=== PATIENT | female | born 1955 | race Caucasian/White ===

== ENCOUNTER → 2016-04-23 | Outpatient (CLI) | payer MEDICARE ==
[~2016-04-23] MED LIST: ALTOCOR60 MG PO; BACTRIM DS 8001 TA1 PO; ELAVIL100 MG PO; KLOR-CON 88 MEQ PO; LASIX20 MG PO; MELATONIN3 M1 PO; METFORMIN1000 MG PO; METFORMIN500 MG PO; MS CONTIN60 MG PO; NEURONTIN800 MG PO; PERCOCET 325 MG1 TA7 PO; PREMPRO 0.3 MG-1 TA1 PO; PRILOSEC20 M1 PO; PYRIDIUM200 M1 PO; REGLAN5 MG PO; STOOL SOFTENER100 M1 PO; TENORMIN25 MG PO; THE MEDICINE S400 IU PO; VITAMIN D-32000 UNIT PO; ZESTRIL,PRINIVIL5 MG PO; ZYRTEC10 M2 PO
[2016-04-23 11:48] LABS: BASO % 0.2 % (0.0-1.0); EOS % 7.8 % (1.0-4.0); HEMATOCRIT 37.8 % (37.0-47.0); HEMOGLOBIN 11.7 g/dl (12.0-16.0); LYMPH # 2.5 10*3/uL (1.3-4.4); LYMPH % 19.9 % (27.0-41.0); MEAN CELL VOLUME 84.6 fl (81.0-99.0); MEAN CORPUSCULAR HGB 26.2 pg (27.0-31.0); MEAN PLATELET VOLUME 9.6 fl (9.6-12.3); MONO # 0.6 10*3/uL (0.1-1.0); MONO % 5.1 % (3.0-9.0); NEUT # 8.2 10*3/uL (2.3-7.9); NEUT % 66.7 % (47.0-73.0); PLATELET COUNT AUTOMATED 299 10*3/uL (130-400); RED BLOOD COUNT 4.47 10*6/uL (4.10-5.10); RED CELL DISTRI WIDTH 14.8 % (0-14.5); WHITE BLOOD COUNT 12.3 10*3/uL (4.8-10.8)
[2016-04-23 12:20] LABS: ALBUMIN 3.1 gm/dl (3.1-4.5); ALKALINE PHOSPHATASE 120 U/L (45-117); BILIRUBIN, TOTAL 0.2 mg/dl (0.2-1.0); BUN 5 mg/dl (7-24); CARBON DIOXIDE 29 mmol/L (21-32); CHLORIDE 102 mmol/L (98-107); CHOLESTEROL 162 mg/dL (<200); EST GLOM FILT AFRICAN AMERICAN > 60 ml/min; GLUCOSE 111 mg/dL (65-99); HDL CHOLESTEROL 76 mg/dl (40-60); LDL CHOLESTEROL 61 mg/dL (9-159); POTASSIUM 4.5 mmol/L (3.5-5.1); SGOT/AST 12 IU/L (3-35); SGPT/ALT 15 U/L (12-78); SODIUM 142 mmol/L (136-145); TRIGLYCERIDES 123 mg/dl (<150); VLDL CHOLESTEROL 25 mg/dL (6-40)
== END | disposition home or self-care (01) ==
LOC: LAB 11:17
PROVIDERS: Internal Medicine
DX: E11.9 Type 2 diabetes mellitus without complications (principal)

== ENCOUNTER → 2016-05-04 | Outpatient (CLI) | payer MEDICARE | END | disposition home or self-care (01) | LOC: US 11:00 | DX: I65.23 Occlusion and stenosis of bilateral carotid arteries (principal); R09.89 Other specified symptoms and signs involving the circulatory and respiratory systems ==

== ENCOUNTER 2016-07-26 20:49 | Emergency (ER) | payer MEDICARE ==
[2016-07-26] MEDS ORDERED: ZANTAC 150150 MG PO (21:07)
[2016-07-26] MEDS ORDERED: IBU800 MG PO (21:25)
[2016-07-26] MEDS ORDERED: Orphenadrine C100 MG PO (21:25)
[2016-07-26] MEDS ORDERED: PREDNISONE50 MG PO (21:25)
== END 2016-07-26 21:44 | disposition home or self-care (01) ==
LOC: ED 20:49
DX: M79.604 Pain in right leg (principal); M79.605 Pain in left leg; G89.29 Other chronic pain; M54.9 Dorsalgia, unspecified; Z79.899 Other long term (current) drug therapy; Z90.49 Acquired absence of other specified parts of digestive tract

== ENCOUNTER 2016-08-15 17:13 | Emergency (ER) | payer MEDICARE ==
[~2016-08-15] VITALS: Wt 99.8 kg
[~2016-08-15 17:13] MED LIST changes: +IBU800 MG PO; +Orphenadrine C100 MG PO; +PREDNISONE50 MG PO; +ZANTAC 150150 MG PO
[2016-08-15 17:56] LABS: BILIRUBIN 1+ (NEGATIVE); BLOOD NEGATIVE (NEGATIVE); CLARITY CLEAR (CLEAR); COLOR YELLOW (YELLOW); GLUCOSE NEGATIVE (NEGATIVE); KETONE TRACE (NEGATIVE); LEUKO ESTERASE TRACE (NEGATIVE); NITRITE NEGATIVE (NEGATIVE); PROTEIN TRACE (NEGATIVE); SPECIFIC GRAVITY 1.025 (1.005-1.030)
[2016-08-15 18:02] LABS: BACTERIA TRACE; WBC 16-20 wbc/hpf (0-5)
[2016-08-15 18:03] LABS: URINE REFLEX COMMENT YES (NO)
[2016-08-15] MEDS ORDERED: MACROBID100 M1 PO (18:07)
== END 2016-08-15 18:14 | disposition home or self-care (01) ==
LOC: ED 17:13
PROVIDERS: Registered Nurse
DX: N30.00 Acute cystitis without hematuria (principal); M54.2 Cervicalgia; M54.6 Pain in thoracic spine; Z79.899 Other long term (current) drug therapy

== ENCOUNTER 2016-08-21 14:19 | Inpatient (IN) | payer MEDICARE ==
[~2016-08-21] VITALS: Ht 162.5 cm; Wt 100.4 kg
--- NOTE | ~2016-08-21 | EKG ---
[place], [place] ELECTROCARDIOGRAM REPORT NAME: NATHANIEL GRANGER UNIT #: [id number] ROOM: 523 DOCTOR: MELLY UGARTE MD BIRTHDATE: [birth year] DOS: 08/22/2016 TIME: 1711 hours. Sinus tachycardia at 115 beats per minute. Complete left bundle branch block. An abnormal ECG. No previous tracing is available for comparison. MELLY GUARTE MD CM:EKGRPT:ELECTROCARDIOGRAM REPORT 1718 1750 MELLY UGARTE MD
--- NOTE | ~2016-08-21 | PR ---
[place], [place] PROGRESS NOTE NAME: [id number] UNIT #: [id number] ROOM: [facility] DOCTOR: MELLY UGARTE MD BIRTHDATE: [birth year] DOS: 08/27/2016 SUBJECTIVE: She was moved to the ICU. She was diagnosed with pulmonary embolism and is on anticoagulation. She has no more than usual shortness of breath. When she came to the hospital it was because of anterior chest heaviness rather than any localized pain on one or the other side of the chest and it probably was not from pulmonary embolism. She has no cough and has not had any expectoration of any blood. OBJECTIVE: GENERAL: She is comfortable. She has oxygen on and her complexion is fine. VITAL SIGNS: Pulse is in the 70s, regular. Blood pressure 130/64. NECK: JVP is normal. CARDIAC: Auscultation reveals no murmurs or rubs. There is no edema of the lower extremities. RESPIRATORY: She has crackles in both lungs, these are chronic. IMPRESSION: 1. This patient has been diagnosed with acute pulmonary embolism and is receiving appropriate therapy. 2. There is no evidence of right heart failure. No new recommendations. I saw this patient on behalf of Dr. Jaimes MELLY UGARTE MD CM:PNTRANS [id number] MELLY UGARTE MD 08/28/16 0649 interface
[~2016-08-21 14:19] MED LIST changes: +MACROBID100 M1 PO
[2016-08-21 14:22] VITALS: BP 131/73
[2016-08-21 14:54] LABS: BILIRUBIN NEGATIVE (NEGATIVE); BLOOD NEGATIVE (NEGATIVE); CLARITY CLEAR (CLEAR); COLOR YELLOW (YELLOW); GLUCOSE NEGATIVE (NEGATIVE); KETONE NEGATIVE (NEGATIVE); LEUKO ESTERASE NEGATIVE (NEGATIVE); NITRITE NEGATIVE (NEGATIVE); PROTEIN NEGATIVE (NEGATIVE); SPECIFIC GRAVITY <= 1.005 (1.005-1.030)
[2016-08-21 14:59] LABS: BASO % 0.1 % (0.0-1.0); EOS # 0.3 10*3/uL (0.0-0.4); EOS % 2.2 % (1.0-4.0); HEMATOCRIT 34.4 % (37.0-47.0); HEMOGLOBIN 11.3 g/dl (12.0-16.0); IG # 0.1 10*3/uL (0.0-0.1); LYMPH # 0.6 10*3/uL (1.3-4.4); LYMPH % 4.4 % (27.0-41.0); MEAN CELL VOLUME 82.5 fl (81.0-99.0); MEAN CORPUSCULAR HGB 27.1 pg (27.0-31.0); MEAN CORPUSCULAR HGB CONC 32.8 g/dl (33.0-37.0); MEAN PLATELET VOLUME 9.7 fl (9.6-12.3); MONO # 0.8 10*3/uL (0.1-1.0); MONO % 5.4 % (3.0-9.0); NEUT # 12.7 10*3/uL (2.3-7.9); NEUT % 87.2 % (47.0-73.0); PLATELET COUNT AUTOMATED 296 10*3/uL (130-400); RED BLOOD COUNT 4.17 10*6/uL (4.10-5.10); RED CELL DISTRI WIDTH 13.7 % (0-14.5); WHITE BLOOD COUNT 14.5 10*3/uL (4.8-10.8)
[2016-08-21 15:07] LABS: URINE REFLEX COMMENT NO (NO)
[2016-08-21 15:08] LABS: PROTHROMBIN TIME 11.1 SECONDS (9.0-12.4)
[2016-08-21 15:17] LABS: ALBUMIN 2.7 gm/dl (3.1-4.5); ALKALINE PHOSPHATASE 120 U/L (45-117); BILIRUBIN, TOTAL 0.4 mg/dl (0.2-1.0); BUN 8 mg/dl (7-24); CARBON DIOXIDE 26 mmol/L (21-32); CHLORIDE 99 mmol/L (98-107); CKMB 0.9 ng/ml (0.5-3.6); CPK 40 U/L (26-192); EST GLOM FILT AFRICAN AMERICAN > 60 ml/min; GLUCOSE 157 mg/dL (65-99); MAGNESIUM 1.3 mg/dL (1.5-2.1); POTASSIUM 3.4 mmol/L (3.5-5.1); SGOT/AST 27 IU/L (3-35); SGPT/ALT 21 U/L (12-78); SODIUM 135 mmol/L (136-145); TOTAL PROTEIN 6.8 gm/dL (6.4-8.2)
[2016-08-21 15:22] LABS: TROPONIN I 0.212 ng/ml (<0.045)
[2016-08-21 16:56] LABS: LA>2 REFLEX 2 HR DRAW NOW
[2016-08-21 18:17] VITALS: BP 147/57
[2016-08-21 18:45] VITALS: BP 124/60
[2016-08-21] MEDS ORDERED: PERCOCET 325 MG1 TA2 PO (18:59)
[2016-08-21 20:00] VITALS: BP 154/68
[2016-08-21 22:08] LABS: CKMB 1.5 ng/ml (0.5-3.6)
[2016-08-21 22:10] LABS: TROPONIN I 0.136 ng/ml (<0.045)
[2016-08-22] VITALS: BP 164/70
[2016-08-22 06:56] LABS: BASO % 0.1 % (0.0-1.0); EOS # 1.2 10*3/uL (0.0-0.4); HEMATOCRIT 33.7 % (37.0-47.0); HEMOGLOBIN 10.7 g/dl (12.0-16.0); IG # 0.1 10*3/uL (0.0-0.1); LYMPH # 1.4 10*3/uL (1.3-4.4); LYMPH % 12.6 % (27.0-41.0); MEAN CELL VOLUME 84.7 fl (81.0-99.0); MEAN CORPUSCULAR HGB 26.9 pg (27.0-31.0); MEAN CORPUSCULAR HGB CONC 31.8 g/dl (33.0-37.0); MEAN PLATELET VOLUME 9.7 fl (9.6-12.3); MONO # 0.6 10*3/uL (0.1-1.0); MONO % 5.9 % (3.0-9.0); NEUT # 7.6 10*3/uL (2.3-7.9); NEUT % 69.8 % (47.0-73.0); PLATELET COUNT AUTOMATED 289 10*3/uL (130-400); RED BLOOD COUNT 3.98 10*6/uL (4.10-5.10); RED CELL DISTRI WIDTH 13.5 % (0-14.5); WHITE BLOOD COUNT 10.9 10*3/uL (4.8-10.8)
[2016-08-22 07:30] LABS: ALBUMIN 2.5 gm/dl (3.1-4.5); ALKALINE PHOSPHATASE 107 U/L (45-117); BILIRUBIN, TOTAL 0.3 mg/dl (0.2-1.0); BUN 6 mg/dl (7-24); CARBON DIOXIDE 28 mmol/L (21-32); CHLORIDE 105 mmol/L (98-107); CHOLESTEROL 102 mg/dL (<200); EST GLOM FILT AFRICAN AMERICAN > 60 ml/min; GLUCOSE 112 mg/dL (65-99); HDL CHOLESTEROL 28 mg/dl (40-60); LDL CHOLESTEROL 50 mg/dL (9-159); MAGNESIUM 2.3 mg/dL (1.5-2.1); PHOSPHOROUS 1.9 mg/dL (2.5-4.9); POTASSIUM 3.5 mmol/L (3.5-5.1); SGOT/AST 24 IU/L (3-35); SGPT/ALT 18 U/L (12-78); SODIUM 142 mmol/L (136-145); TOTAL PROTEIN 6.2 gm/dL (6.4-8.2); TRIGLYCERIDES 122 mg/dl (<150); VLDL CHOLESTEROL 24 mg/dL (6-40)
[2016-08-22 07:33] LABS: PROTHROMBIN TIME 10.5 SECONDS (9.0-12.4)
[2016-08-22 07:41] LABS: HEMOGLOBIN A1c 6.8 % (4.8-5.6)
[2016-08-22 08:00] VITALS: BP 152/50
[2016-08-22 08:06] LABS: FOLIC ACID 5.87 ng/mL (>5.38); VITAMIN D, 25-HYDROXY 66.9 ng/mL (30-100)
[2016-08-22 12:00] VITALS: BP 134/68
[2016-08-22 16:00] VITALS: BP 122/52
[2016-08-22 17:14] VITALS: BP 162/58
[2016-08-22 20:00] VITALS: BP 151/71
[2016-08-23] VITALS (11 sets, daily range): BP systolic 88–177; BP diastolic 40–88
[2016-08-23 06:59] LABS: HEMATOCRIT 31.9 % (37.0-47.0); HEMOGLOBIN 10.2 g/dl (12.0-16.0); MEAN CELL VOLUME 84.8 fl (81.0-99.0); MEAN CORPUSCULAR HGB 27.1 pg (27.0-31.0); MEAN PLATELET VOLUME 9.5 fl (9.6-12.3); PLATELET COUNT AUTOMATED 299 10*3/uL (130-400); RED BLOOD COUNT 3.76 10*6/uL (4.10-5.10); RED CELL DISTRI WIDTH 13.8 % (0-14.5); WHITE BLOOD COUNT 14.1 10*3/uL (4.8-10.8)
[2016-08-23 07:28] LABS: BUN 6 mg/dl (7-24); CHLORIDE 105 mmol/L (98-107); GLUCOSE 104 mg/dL (65-99); POTASSIUM 3.1 mmol/L (3.5-5.1); SODIUM 141 mmol/L (136-145)
[2016-08-23 07:33] LABS: CARBON DIOXIDE 29 mmol/L (21-32); EST GLOM FILT AFRICAN AMERICAN > 60 ml/min
[2016-08-23 07:43] LABS: EOSINOPHIL # 1.6 10*3/uL (0-0.4); EOSINOPHILS 11 % (1-4); LYMPHOCYTE # 0.7 10*3/uL (1.3-4.4); MONOCYTE # 0.4 10*3/uL (0.1-1.0); NEUTROPHIL # 11.4 10*3/uL (2.3-7.9); NEUTROPHILS 81 % (47-73); PLATELET SUFFICIENCY NORMAL (NORMAL); TOTAL CELLS COUNTED 100 #CELLS
[2016-08-24] VITALS: BP 105/55
[2016-08-24 07:14] LABS: HEMATOCRIT 29.6 % (37.0-47.0); HEMOGLOBIN 9.3 g/dl (12.0-16.0); MEAN CELL VOLUME 84.3 fl (81.0-99.0); MEAN CORPUSCULAR HGB 26.5 pg (27.0-31.0); MEAN CORPUSCULAR HGB CONC 31.4 g/dl (33.0-37.0); MEAN PLATELET VOLUME 9.6 fl (9.6-12.3); PLATELET COUNT AUTOMATED 243 10*3/uL (130-400); RED BLOOD COUNT 3.51 10*6/uL (4.10-5.10); RED CELL DISTRI WIDTH 13.8 % (0-14.5); WHITE BLOOD COUNT 14.7 10*3/uL (4.8-10.8)
[2016-08-24 07:42] LABS: EOSINOPHIL # 1.9 10*3/uL (0-0.4); EOSINOPHILS 13 % (1-4); LYMPHOCYTE # 0.6 10*3/uL (1.3-4.4); MONOCYTE # 0.1 10*3/uL (0.1-1.0); NEUTROPHIL # 12.1 10*3/uL (2.3-7.9); NEUTROPHILS 82 % (47-73); TOTAL CELLS COUNTED 100 #CELLS
[2016-08-24 07:43] LABS: PLATELET SUFFICIENCY NORMAL (NORMAL)
[2016-08-24 07:44] LABS: ALKALINE PHOSPHATASE 176 U/L (45-117); BILIRUBIN, TOTAL 0.7 mg/dl (0.2-1.0); BUN 6 mg/dl (7-24); CARBON DIOXIDE 28 mmol/L (21-32); CHLORIDE 103 mmol/L (98-107); EST GLOM FILT AFRICAN AMERICAN > 60 ml/min; GLUCOSE 104 mg/dL (65-99); POTASSIUM 3.2 mmol/L (3.5-5.1); SGOT/AST 46 IU/L (3-35); SGPT/ALT 43 U/L (12-78); SODIUM 141 mmol/L (136-145); TOTAL PROTEIN 6.5 gm/dL (6.4-8.2)
[2016-08-24 08:00] VITALS: BP 135/55
[2016-08-24 12:00] VITALS: BP 116/41
[2016-08-24 16:00] VITALS: BP 119/49
[2016-08-24 20:00] VITALS: BP 127/51
[2016-08-25] VITALS: BP 117/59
[2016-08-25 04:26] VITALS: BP 116/58
[2016-08-25 06:23] LABS: BILIRUBIN NEGATIVE (NEGATIVE); BLOOD NEGATIVE (NEGATIVE); CLARITY CLEAR (CLEAR); COLOR YELLOW (YELLOW); GLUCOSE NEGATIVE (NEGATIVE); KETONE NEGATIVE (NEGATIVE); LEUKO ESTERASE NEGATIVE (NEGATIVE); NITRITE NEGATIVE (NEGATIVE); PROTEIN NEGATIVE (NEGATIVE); SPECIFIC GRAVITY <= 1.005 (1.005-1.030); UROBILINOGEN 0.2 E.U./dl (0.2-1.0)
[2016-08-25 06:27] LABS: HEMATOCRIT 29.3 % (37.0-47.0); HEMOGLOBIN 9.4 g/dl (12.0-16.0); MEAN CELL VOLUME 84.4 fl (81.0-99.0); MEAN CORPUSCULAR HGB 27.1 pg (27.0-31.0); MEAN CORPUSCULAR HGB CONC 32.1 g/dl (33.0-37.0); MEAN PLATELET VOLUME 9.7 fl (9.6-12.3); PLATELET COUNT AUTOMATED 253 10*3/uL (130-400); RED BLOOD COUNT 3.47 10*6/uL (4.10-5.10); RED CELL DISTRI WIDTH 13.8 % (0-14.5); WHITE BLOOD COUNT 15.6 10*3/uL (4.8-10.8)
[2016-08-25 06:29] LABS: URINE REFLEX COMMENT NO (NO); WBC 0-2 wbc/hpf (0-5)
[2016-08-25 06:55] LABS: EOSINOPHIL # 2.5 10*3/uL (0-0.4); EOSINOPHILS 16 % (1-4); LYMPHOCYTE # 0.8 10*3/uL (1.3-4.4); MONOCYTE # 0.3 10*3/uL (0.1-1.0); NEUTROPHILS 77 % (47-73); TOTAL CELLS COUNTED 100 #CELLS
[2016-08-25 06:56] LABS: PLATELET SUFFICIENCY NORMAL (NORMAL)
[2016-08-25 07:03] LABS: ALBUMIN 3.3 gm/dl (3.1-4.5); ALKALINE PHOSPHATASE 206 U/L (45-117); BUN 5 mg/dl (7-24); CARBON DIOXIDE 28 mmol/L (21-32); CHLORIDE 103 mmol/L (98-107); EST GLOM FILT AFRICAN AMERICAN > 60 ml/min; GLUCOSE 141 mg/dL (65-99); MAGNESIUM 1.3 mg/dL (1.5-2.1); POTASSIUM 3.2 mmol/L (3.5-5.1); SGOT/AST 91 IU/L (3-35); SGPT/ALT 59 U/L (12-78); SODIUM 140 mmol/L (136-145); TOTAL PROTEIN 6.4 gm/dL (6.4-8.2)
[2016-08-25 11:44] LABS: CKMB 1.3 ng/ml (0.5-3.6)
[2016-08-25 13:00] VITALS: BP 126/73
[2016-08-25 16:00] VITALS: BP 123/50
[2016-08-25 19:00] VITALS: BP 167/89
[2016-08-25 20:02] LABS: ABG CO2 CONTENT 29.1 mmol/L (23-27); ABG HCO3 27.9 mmol/l (22-26); ABG TEMPERATURE 99.7 F (98.0-99.0); ARTERIAL BLOOD GAS PH 7.443 (7.35-7.45); ARTERIAL BLOOD GAS PO2 93.4 mmHg (80-90)
[2016-08-25 20:09] LABS: CKMB 1.4 ng/ml (0.5-3.6)
[2016-08-25 20:11] LABS: TROPONIN I 0.206 ng/ml (<0.045)
[2016-08-25 23:36] VITALS: BP 108/55
[2016-08-26 03:27] VITALS: BP 136/72
[2016-08-26 03:40] LABS: BASO % 0.2 % (0.0-1.0); EOS # 0.2 10*3/uL (0.0-0.4); EOS % 1.8 % (1.0-4.0); HEMATOCRIT 28.8 % (37.0-47.0); HEMOGLOBIN 9.4 g/dl (12.0-16.0); IG # 0.1 10*3/uL (0.0-0.1); LYMPH # 0.7 10*3/uL (1.3-4.4); LYMPH % 5.2 % (27.0-41.0); MEAN CELL VOLUME 82.8 fl (81.0-99.0); MEAN CORPUSCULAR HGB CONC 32.6 g/dl (33.0-37.0); MEAN PLATELET VOLUME 9.4 fl (9.6-12.3); MONO # 0.3 10*3/uL (0.1-1.0); MONO % 2.7 % (3.0-9.0); NEUT # 11.1 10*3/uL (2.3-7.9); PLATELET COUNT AUTOMATED 258 10*3/uL (130-400); RED BLOOD COUNT 3.48 10*6/uL (4.10-5.10); RED CELL DISTRI WIDTH 13.9 % (0-14.5); WHITE BLOOD COUNT 12.5 10*3/uL (4.8-10.8)
[2016-08-26 03:55] LABS: ALBUMIN 2.8 gm/dl (3.1-4.5); ALKALINE PHOSPHATASE 187 U/L (45-117); BILIRUBIN, TOTAL 0.7 mg/dl (0.2-1.0); BUN 7 mg/dl (7-24); CARBON DIOXIDE 31 mmol/L (21-32); CHLORIDE 100 mmol/L (98-107); EST GLOM FILT AFRICAN AMERICAN > 60 ml/min; GLUCOSE 180 mg/dL (65-99); POTASSIUM 3.5 mmol/L (3.5-5.1); SGOT/AST 34 IU/L (3-35); SGPT/ALT 48 U/L (12-78); SODIUM 142 mmol/L (136-145); TOTAL PROTEIN 6.4 gm/dL (6.4-8.2)
[2016-08-26 08:00] VITALS: BP 142/59
[2016-08-26 10:01] LABS: INTERNATIONAL NORM RATIO 1.1 (2.0-3.5); PROTHROMBIN TIME 11.7 SECONDS (9.0-12.4)
[2016-08-26 16:04] VITALS: BP 123/51
[2016-08-26 20:00] VITALS: BP 147/71
[2016-08-27] VITALS: BP 124/58
[2016-08-27 04:00] VITALS: BP 130/61
[2016-08-27 07:30] LABS: CHLORIDE 101 mmol/L (98-107); POTASSIUM 3.9 mmol/L (3.5-5.1); SODIUM 138 mmol/L (136-145)
[2016-08-27 07:38] LABS: ALBUMIN 2.5 gm/dl (3.1-4.5); ALKALINE PHOSPHATASE 152 U/L (45-117); BILIRUBIN, TOTAL 0.4 mg/dl (0.2-1.0); BUN 15 mg/dl (7-24); CARBON DIOXIDE 30 mmol/L (21-32); EST GLOM FILT AFRICAN AMERICAN > 60 ml/min; GLUCOSE 282 mg/dL (65-99); MAGNESIUM 1.9 mg/dL (1.5-2.1); PHOSPHOROUS 3.1 mg/dL (2.5-4.9); SGOT/AST 14 IU/L (3-35); SGPT/ALT 31 U/L (12-78); TOTAL PROTEIN 6.2 gm/dL (6.4-8.2)
[2016-08-27 07:58] VITALS: BP 123/55
[2016-08-27 12:00] VITALS: BP 118/57; BP 130/54
[2016-08-27 16:00] VITALS: BP 123/61
[2016-08-27 20:00] VITALS: BP 132/62
[2016-08-27] MEDS ORDERED: LASIX20 MG PO (20:30)
[2016-08-27] MEDS ORDERED: KLOR-CON 88 ME1 PO (20:31)
[2016-08-28] VITALS: BP 140/63
[2016-08-28 04:00] VITALS: BP 139/58
[2016-08-28 05:22] LABS: BUN 17 mg/dl (7-24); CARBON DIOXIDE 32 mmol/L (21-32); CHLORIDE 99 mmol/L (98-107); EST GLOM FILT AFRICAN AMERICAN > 60 ml/min; GLUCOSE 333 mg/dL (65-99); POTASSIUM 4.3 mmol/L (3.5-5.1); SODIUM 138 mmol/L (136-145)
[2016-08-28 05:58] LABS: INTERNATIONAL NORM RATIO 1.1 (2.0-3.5); PROTHROMBIN TIME 11.4 SECONDS (9.0-12.4)
[2016-08-28 06:17] LABS: HEMATOCRIT 27.1 % (37.0-47.0); HEMOGLOBIN 8.7 g/dl (12.0-16.0); MEAN CELL VOLUME 83.4 fl (81.0-99.0); MEAN CORPUSCULAR HGB 26.8 pg (27.0-31.0); MEAN CORPUSCULAR HGB CONC 32.1 g/dl (33.0-37.0); MEAN PLATELET VOLUME 10.4 fl (9.6-12.3); PLATELET COUNT AUTOMATED 370 10*3/uL (130-400); RED BLOOD COUNT 3.25 10*6/uL (4.10-5.10); WHITE BLOOD COUNT 11.2 10*3/uL (4.8-10.8)
[2016-08-28 06:53] LABS: HYPOCHROMIA MODERATE; LYMPHOCYTE # 1.1 10*3/uL (1.3-4.4); NEUTROPHIL # 10.1 10*3/uL (2.3-7.9); NEUTROPHILS 90 % (47-73); PLATELET SUFFICIENCY NORMAL (NORMAL); TOTAL CELLS COUNTED 100 #CELLS
[2016-08-28 08:00] VITALS: BP 136/67
[2016-08-28 12:00] VITALS: BP 155/64
[2016-08-28] MEDS ORDERED: XARELTO15 M1 PO (13:33)
[2016-08-28] MEDS ORDERED: B12,B-12,B 12500 MC1 PO (13:33)
[2016-08-28] MEDS ORDERED: TENORMIN25 MG PO (13:33)
[2016-08-28] MEDS ORDERED: XARE20MG PO (13:33)
== END 2016-08-28 15:01 | disposition home or self-care (01) | DRG 177 ==
LOC: ED 14:19 → 4E 18:09 → 5E 18:09 → EDHOLD 18:09 → 4E 18:25 → ICCU 08-25 20:27 → 5E 08-28 10:12
PROVIDERS: Emergency Medicine; Family Medicine; Internal Medicine; Internal Medicine Hospice and Palliative Medicine
PROC: 4A02XM4 Measurement of Cardiac Total Activity, External Approach (ICD-10-PCS; principal; 2016-08-25)
PROC: 3E073KZ Introduction of Other Diagnostic Substance into Coronary Artery, Percutaneous Approach (ICD-10-PCS; principal; 2016-08-25)
PROC: 02HV33Z Insertion of Infusion Device into Superior Vena Cava, Percutaneous Approach (ICD-10-PCS; 2016-08-26)
DX: J15.6 Pneumonia due to other Gram-negative bacteria (principal); I26.99 Other pulmonary embolism without acute cor pulmonale; E43 Unspecified severe protein-calorie malnutrition; E87.1 Hypo-osmolality and hyponatremia; E87.2 Acidosis; F32.9 Major depressive disorder, single episode, unspecified; K21.9 Gastro-esophageal reflux disease without esophagitis; D64.9 Anemia, unspecified; E78.5 Hyperlipidemia, unspecified; E66.9 Obesity, unspecified; M51.26 Other intervertebral disc displacement, lumbar region; E83.42 Hypomagnesemia; E11.65 Type 2 diabetes mellitus with hyperglycemia; E87.6 Hypokalemia; R00.0 Tachycardia, unspecified; E11.40 Type 2 diabetes mellitus with diabetic neuropathy, unspecified; G89.29 Other chronic pain; Z90.49 Acquired absence of other specified parts of digestive tract; Z82.49 Family history of ischemic heart disease and other diseases of the circulatory system; Z80.8 Family history of malignant neoplasm of other organs or systems; Z83.3 Family history of diabetes mellitus; Z79.84 Long term (current) use of oral hypoglycemic drugs; Z79.1 Long term (current) use of non-steroidal anti-inflammatories (NSAID); Z79.899 Other long term (current) drug therapy; Z68.37 Body mass index [BMI] 37.0-37.9, adult

== ENCOUNTER → 2016-09-23 | Outpatient (CLI) | payer MEDICARE ==
[~2016-09-23] MED LIST changes: +B12,B-12,B 12500 MC1 PO; +KLOR-CON 88 ME1 PO; +PERCOCET 325 MG1 TA2 PO; +XARE20MG PO; +XARELTO15 M1 PO
== END | disposition home or self-care (01) ==
LOC: LAB 12:50
DX: N30.00 Acute cystitis without hematuria (principal); T73.3XXA Exhaustion due to excessive exertion, initial encounter

== ENCOUNTER 2016-10-27 11:14 | Inpatient (IN) | payer MEDICARE ==
[~2016-10-27] VITALS: Ht 162.5 cm; Wt 100.0 kg
[2016-10-27 11:28] VITALS: BP 126/72
[2016-10-27 12:40] LABS: HEMATOCRIT 32.9 % (37.0-47.0); HEMOGLOBIN 10.3 g/dl (12.0-16.0); MEAN CELL VOLUME 85.9 fl (81.0-99.0); MEAN CORPUSCULAR HGB 26.9 pg (27.0-31.0); MEAN CORPUSCULAR HGB CONC 31.3 g/dl (33.0-37.0); PLATELET COUNT AUTOMATED 303 10*3/uL (130-400); RED BLOOD COUNT 3.83 10*6/uL (4.10-5.10); RED CELL DISTRI WIDTH 15.7 % (0-14.5); WHITE BLOOD COUNT 15.4 10*3/uL (4.8-10.8)
[2016-10-27 12:49] LABS: ACT PARTIAL THROMBO TIME 41.1 SECONDS (20.8-31.5); INTERNATIONAL NORM RATIO 1.6 (2.0-3.5)
[2016-10-27 12:57] LABS: ALBUMIN 2.9 gm/dl (3.1-4.5); ALKALINE PHOSPHATASE 82 U/L (45-117); BUN 9 mg/dl (7-24); CHLORIDE 104 mmol/L (98-107); CPK 36 U/L (26-192); CREATININE 0.91 mg/dL (0.55-1.02); LIPASE 62 U/L (73-393); MAGNESIUM 1.6 mg/dL (1.5-2.1); PLATELET SUFFICIENCY NORMAL (NORMAL); POLYCHROMASIA SLIGHT; POTASSIUM 4.4 mmol/L (3.5-5.1); SGOT/AST 18 IU/L (3-35); SGPT/ALT 13 U/L (12-78); SODIUM 139 mmol/L (136-145); TOTAL CELLS COUNTED 100 #CELLS; TOTAL PROTEIN 6.4 gm/dL (6.4-8.2); TROPONIN I 0.039 ng/ml (<0.045)
[2016-10-27 12:59] LABS: CKMB < 0.5 ng/ml (0.5-3.6)
[2016-10-27 13:25] LABS: BILIRUBIN NEGATIVE (NEGATIVE); BLOOD NEGATIVE (NEGATIVE); CLARITY CLEAR (CLEAR); COLOR YELLOW (YELLOW); GLUCOSE NEGATIVE (NEGATIVE); KETONE NEGATIVE (NEGATIVE); LEUKO ESTERASE 2+ (NEGATIVE); NITRITE NEGATIVE (NEGATIVE); SPECIFIC GRAVITY <= 1.005 (1.005-1.030); UROBILINOGEN 0.2 E.U./dl (0.2-1.0)
[2016-10-27 13:31] VITALS: BP 106/51
[2016-10-27 13:31] LABS: WBC 41-50 wbc/hpf (0-5)
[2016-10-27 13:32] LABS: BACTERIA TRACE
[2016-10-27 14:15] VITALS: BP 104/56
[2016-10-27 17:48] VITALS: BP 116/86
[2016-10-27] MEDS ORDERED: ZANAFLEX2 M1 PO (17:53)
[2016-10-27] MEDS ORDERED: TENORMIN25 M1 PO (18:03)
--- NOTE | 2016-10-27 18:19 | NUR ---
Time: 1799 A 61 year old MALE admitted to 5E under services of FELIX MADERA DO, Pt. arrived via stretcher from ER. Chief complaint: DIZZINESS,UNSTEADY GAIT, UTI. CYNTHIA PEARL
--- NOTE | 2016-10-27 18:36 | NUR ---
DR. SARKAR NOTIFIED OF LACTIC ACID RESULTS.
[2016-10-27 20:00] VITALS: BP 100/47
[2016-10-28] VITALS (7 sets, daily range): BP systolic 92–131; BP diastolic 46–60
--- NOTE | 2016-10-28 01:43 | NUR ---
PATIENT MEDICATED WITH PERCOCET AT 2156 FOR COMPLAINTS OF A HEADACHE WITH EFFECTIVE RESULTS NOTED. RESTING IN RECLINER SLEEPING AT THIS TIME. NO SIGNS OR SYMPTOMS OF DISTRESS NOTED. WILL CONTINUE TO MONITOR. CALL LIGHT IN REACH.
--- NOTE | 2016-10-28 01:44 | NUR ---
PATIENT GIVEN FLU AND PNEUMONIA VACCINES EARLIER IN SHIFT. NO SIGNS OR SYMPTOMS OF DISTRESS NOTED. CALL LIGHT IN REACH.
[2016-10-28 06:10] LABS: BASO % 0.1 % (0.0-1.0); EOS # 0.8 10*3/uL (0.0-0.4); EOS % 9.2 % (1.0-4.0); HEMATOCRIT 29.5 % (37.0-47.0); HEMOGLOBIN 9.4 g/dl (12.0-16.0); LYMPH # 0.9 10*3/uL (1.3-4.4); LYMPH % 11.1 % (27.0-41.0); MEAN CELL VOLUME 86.5 fl (81.0-99.0); MEAN CORPUSCULAR HGB 27.6 pg (27.0-31.0); MEAN CORPUSCULAR HGB CONC 31.9 g/dl (33.0-37.0); MEAN PLATELET VOLUME 9.5 fl (9.6-12.3); MONO # 0.5 10*3/uL (0.1-1.0); MONO % 5.6 % (3.0-9.0); NEUT # 6.2 10*3/uL (2.3-7.9); NEUT % 73.6 % (47.0-73.0); PLATELET COUNT AUTOMATED 219 10*3/uL (130-400); RED BLOOD COUNT 3.41 10*6/uL (4.10-5.10); RED CELL DISTRI WIDTH 15.9 % (0-14.5); WHITE BLOOD COUNT 8.4 10*3/uL (4.8-10.8)
[2016-10-28 06:26] LABS: BUN 11 mg/dl (7-24); CHLORIDE 108 mmol/L (98-107); MAGNESIUM 1.7 mg/dL (1.5-2.1); SODIUM 141 mmol/L (136-145)
[2016-10-28 06:36] LABS: CHOLESTEROL 99 mg/dL (<200); CREATININE 0.57 mg/dL (0.55-1.02); HDL CHOLESTEROL 48 mg/dl (40-60); LDL CHOLESTEROL 36 mg/dL (9-159); PHOSPHOROUS 3.4 mg/dL (2.5-4.9); TRIGLYCERIDES 73 mg/dl (<150); VLDL CHOLESTEROL 15 mg/dL (6-40)
[2016-10-28 07:16] LABS: VITAMIN D, 25-HYDROXY 50.3 ng/mL (30-100)
--- NOTE | 2016-10-28 07:53 | NUR ---
PT RESTING IN CHAIR, NO DISTRESS NOTED; CALL LIGHT WITHIN REACH. WILL MONITOR
--- NOTE | 2016-10-28 08:30 | NUR ---
Room Inspector in to talk to patient. Patient states lives at HOME [address] with HER BROTHER. There are 11 steps in the home. Physician: DR [facility] Pharmacy: [facility] Home health services: NONE Patient's level of ADLs: INDEPENDENT Patient has working utilities: YES DME: NONE Follow-up physician's appointment after d/c: WILL BE MADE PRIOR TO DC Does patient want to access PORTAL?: Discharge plan HOME. STACY FORTE
--- NOTE | 2016-10-28 11:50 | NUR ---
PT REQUESTED AND GIVEN TYLENOL FOR C/O HEADACHE, WILL MONITOR. FAMILY AT BEDSIDE
--- NOTE | 2016-10-28 13:00 | NUR ---
PT STATES THAT TYLENOL HELPED. WILL MONITOR
[2016-10-29] VITALS: BP 115/73
[2016-10-29 06:30] LABS: BASO % 0.2 % (0.0-1.0); EOS # 0.8 10*3/uL (0.0-0.4); EOS % 12.9 % (1.0-4.0); HEMATOCRIT 30.9 % (37.0-47.0); HEMOGLOBIN 9.7 g/dl (12.0-16.0); LYMPH # 1.6 10*3/uL (1.3-4.4); MEAN CELL VOLUME 87.8 fl (81.0-99.0); MEAN CORPUSCULAR HGB 27.6 pg (27.0-31.0); MEAN CORPUSCULAR HGB CONC 31.4 g/dl (33.0-37.0); MEAN PLATELET VOLUME 10.2 fl (9.6-12.3); MONO # 0.5 10*3/uL (0.1-1.0); MONO % 8.7 % (3.0-9.0); NEUT # 3.2 10*3/uL (2.3-7.9); NEUT % 51.9 % (47.0-73.0); PLATELET COUNT AUTOMATED 265 10*3/uL (130-400); RED BLOOD COUNT 3.52 10*6/uL (4.10-5.10); RED CELL DISTRI WIDTH 15.8 % (0-14.5); WHITE BLOOD COUNT 6.1 10*3/uL (4.8-10.8)
[2016-10-29 08:00] VITALS: BP 114/50
--- NOTE | 2016-10-29 08:00 | NUR ---
PATIENT SITTING COMFORTABLY IN CHAIR, EASY RESPIRATIONS WITH SKIN WARM AND DRY. DENIES COMPLAINT OF DIZZINESS OR VISUAL CHANGES AT THIS TIME. CALL LIGHT SYSTEM REINFORCED FOR ASSISTANCE. STEADY GAIT.
[2016-10-29 08:22] VITALS: BP 108/56
--- NOTE | 2016-10-29 11:30 | NUR ---
PATIENT WAS GIVEN 5MG PO BASOCODYL PER PATIENT REQUEST DUE TO CONSTIPATION.
[2016-10-29 12:00] VITALS: BP 127/44
[2016-10-29 16:00] VITALS: BP 105/53
[2016-10-29] MEDS ORDERED: PHARMASSURE FO0.4 MG PO (16:20)
[2016-10-29] MEDS ORDERED: PHENAZOPYRIDIN100 M1 PO (16:29)
--- NOTE | 2016-10-29 17:48 | NUR ---
PATIENT WAS NOT GIVEN LISPRO PER SLIDING SCALE DUE TO A BLOOD GLUCOSE OF 116 MG/DL
--- NOTE | 2016-10-29 19:12 | NUR ---
Discharge instructions reviewed with patient/family. Patient receptive and verbalizes understanding. Written instructions given to patient/family. SAE GRANT
== END 2016-10-29 19:12 | disposition home or self-care (01) | DRG 871 ==
LOC: ED 11:14 → EDHOLD 14:07 → 5E 14:07
PROVIDERS: Emergency Medicine; Internal Medicine; ADMIT Internal Medicine
DX: A41.9 Sepsis, unspecified organism (principal); I26.99 Other pulmonary embolism without acute cor pulmonale; E44.0 Moderate protein-calorie malnutrition; E11.42 Type 2 diabetes mellitus with diabetic polyneuropathy; D68.9 Coagulation defect, unspecified; E11.69 Type 2 diabetes mellitus with other specified complication; F33.9 Major depressive disorder, recurrent, unspecified; N39.0 Urinary tract infection, site not specified; I10 Essential (primary) hypertension; D64.9 Anemia, unspecified; R65.20 Severe sepsis without septic shock; K21.9 Gastro-esophageal reflux disease without esophagitis; M51.26 Other intervertebral disc displacement, lumbar region; E55.9 Vitamin D deficiency, unspecified; E53.8 Deficiency of other specified B group vitamins; Z88.8 Allergy status to other drugs, medicaments and biological substances; Z79.899 Other long term (current) drug therapy; Z79.84 Long term (current) use of oral hypoglycemic drugs; Z90.49 Acquired absence of other specified parts of digestive tract; Z82.49 Family history of ischemic heart disease and other diseases of the circulatory system; Z83.3 Family history of diabetes mellitus; Z80.9 Family history of malignant neoplasm, unspecified; Z68.37 Body mass index [BMI] 37.0-37.9, adult

== ENCOUNTER → 2017-01-25 | Outpatient (CLI) | payer MEDICARE ==
[~2017-01-25] MED LIST changes: +PHARMASSURE FO0.4 MG PO; +PHENAZOPYRIDIN100 M1 PO; +TENORMIN25 M1 PO; +ZANAFLEX2 M1 PO
== END | disposition home or self-care (01) ==
LOC: RESCLI 01:20
DX: I11.0 Hypertensive heart disease with heart failure (principal); I50.32 Chronic diastolic (congestive) heart failure; E11.9 Type 2 diabetes mellitus without complications; E66.9 Obesity, unspecified; G89.29 Other chronic pain; D50.8 Other iron deficiency anemias; K21.0 Gastro-esophageal reflux disease with esophagitis; E78.00 Pure hypercholesterolemia, unspecified; I48.2 Chronic atrial fibrillation; F32.9 Major depressive disorder, single episode, unspecified; E55.9 Vitamin D deficiency, unspecified

== ENCOUNTER 2017-05-07 21:56 | Emergency (ER) | payer MEDICARE ==
[~2017-05-07] VITALS: Ht 162.5 cm; Wt 95.3 kg
== END 2017-05-07 23:20 | disposition home or self-care (01) ==
LOC: ED 21:56
DX: M79.604 Pain in right leg (principal); M79.605 Pain in left leg; Z79.899 Other long term (current) drug therapy

== ENCOUNTER → 2017-08-18 | Outpatient (CLI) | payer MEDICARE ==
[~2017-08-18] MED LIST changes: +CEPHALEXIN500 M1 PO
== END | disposition home or self-care (01) ==
LOC: RESCLI 04:09
DX: I48.2 Chronic atrial fibrillation (principal); K21.9 Gastro-esophageal reflux disease without esophagitis; I10 Essential (primary) hypertension; E78.5 Hyperlipidemia, unspecified; Z79.899 Other long term (current) drug therapy; Z88.8 Allergy status to other drugs, medicaments and biological substances; Z87.891 Personal history of nicotine dependence

== ENCOUNTER 2018-01-03 05:30 | Emergency (ER) | payer MEDICARE ==
[~2018-01-03] VITALS: Ht 162.5 cm; Wt 99.8 kg
[~2018-01-03 05:30] MED LIST changes: +MEDROL DOSEPAK4 MG PO
[2018-01-03] MEDS ORDERED: IBU800 MG PO (05:36)
[2018-01-03] MEDS ORDERED: CYCLOBENZAPRINE10 MG PO (05:36)
== END 2018-01-03 05:56 | disposition home or self-care (01) ==
LOC: ED 05:30
DX: G25.81 Restless legs syndrome (principal); I10 Essential (primary) hypertension; K21.9 Gastro-esophageal reflux disease without esophagitis; E11.40 Type 2 diabetes mellitus with diabetic neuropathy, unspecified; Z79.899 Other long term (current) drug therapy; Z86.711 Personal history of pulmonary embolism; Z90.49 Acquired absence of other specified parts of digestive tract

== ENCOUNTER → 2018-01-10 | Outpatient (CLI) | payer MEDICARE ==
[~2018-01-10] MED LIST changes: +CYCLOBENZAPRINE10 MG PO
== END | disposition home or self-care (01) ==
LOC: US 13:28
DX: M79.604 Pain in right leg (principal); M79.605 Pain in left leg; R29.898 Other symptoms and signs involving the musculoskeletal system; I10 Essential (primary) hypertension; E11.9 Type 2 diabetes mellitus without complications

== ENCOUNTER → 2018-02-10 | Outpatient (CLI) | payer MEDICARE | END | disposition home or self-care (01) | LOC: RESCLI 02:49 | DX: I48.2 Chronic atrial fibrillation (principal); I11.0 Hypertensive heart disease with heart failure; I50.32 Chronic diastolic (congestive) heart failure; E11.9 Type 2 diabetes mellitus without complications; D50.8 Other iron deficiency anemias; K21.9 Gastro-esophageal reflux disease without esophagitis; G89.29 Other chronic pain; E55.9 Vitamin D deficiency, unspecified; E78.5 Hyperlipidemia, unspecified; M19.90 Unspecified osteoarthritis, unspecified site; E66.9 Obesity, unspecified; Z90.49 Acquired absence of other specified parts of digestive tract; Z88.8 Allergy status to other drugs, medicaments and biological substances; Z79.899 Other long term (current) drug therapy; Z87.891 Personal history of nicotine dependence ==

== ENCOUNTER → 2018-02-15 | Outpatient (CLI) | payer MEDICARE ==
[~2018-02-15] MED LIST changes: +BUSPIRONE HCL7.5 MG PO; -ELAVIL100 MG PO; +ELAVIL75 MG PO; +LOVASTATIN40 MG PO; +OMEPRAZOLE40 MG PO; -PERCOCET 325 MG1 TA2 PO; +Percocet 325 MG1 TAB PO
[2018-02-15 11:57] LABS: BASO % 0.3 % (0.0-1.0); EOS # 0.7 10*3/uL (0.0-0.4); EOS % 7.7 % (1.0-4.0); HEMATOCRIT 38.3 % (37.0-47.0); HEMOGLOBIN 12.4 g/dl (12.0-16.0); LYMPH # 1.7 10*3/uL (1.3-4.4); LYMPH % 19.5 % (27.0-41.0); MEAN CELL VOLUME 91.4 fl (81.0-99.0); MEAN CORPUSCULAR HGB 29.6 pg (27.0-31.0); MEAN CORPUSCULAR HGB CONC 32.4 g/dl (33.0-37.0); MEAN PLATELET VOLUME 10.1 fl (9.6-12.3); MONO # 0.5 10*3/uL (0.1-1.0); MONO % 5.5 % (3.0-9.0); NEUT # 5.7 10*3/uL (2.3-7.9); NEUT % 66.7 % (47.0-73.0); PLATELET COUNT AUTOMATED 294 10*3/uL (130-400); RED BLOOD COUNT 4.19 10*6/uL (4.10-5.10); RED CELL DISTRI WIDTH 13.1 % (0-14.5); WHITE BLOOD COUNT 8.6 10*3/uL (4.8-10.8)
[2018-02-15 12:13] LABS: ALBUMIN 3.1 gm/dl (3.1-4.5); BUN 12 mg/dl (7-24); CHLORIDE 105 mmol/L (98-107); POTASSIUM 4.3 mmol/L (3.5-5.1); SODIUM 141 mmol/L (136-145)
[2018-02-15 12:22] LABS: ALKALINE PHOSPHATASE 101 U/L (45-117); CHOLESTEROL 189 mg/dL (<200); CREATININE 0.87 mg/dL (0.55-1.02); HDL CHOLESTEROL 62 mg/dl (40-60); IRON 57 ug/dL (50-170); LDL CHOLESTEROL 100 mg/dL (9-159); SGOT/AST 13 IU/L (3-35); SGPT/ALT 14 U/L (12-78); TOTAL IRON BINDING CAPACITY 309 ug/dl (250-450); TRIGLYCERIDES 137 mg/dl (<150); VLDL CHOLESTEROL 27 mg/dL (6-40)
== END | disposition home or self-care (01) ==
PROVIDERS: Student in an Organized Health Care Education/Training Program
DX: I10 Essential (primary) hypertension (principal); D50.8 Other iron deficiency anemias; I48.2 Chronic atrial fibrillation; E11.9 Type 2 diabetes mellitus without complications; E55.9 Vitamin D deficiency, unspecified; E78.00 Pure hypercholesterolemia, unspecified

== ENCOUNTER → 2018-03-18 | Outpatient (CLI) | payer MEDICARE | END | disposition home or self-care (01) | LOC: RESCLI 01:16 | DX: I11.0 Hypertensive heart disease with heart failure (principal); I50.32 Chronic diastolic (congestive) heart failure; I48.2 Chronic atrial fibrillation; E11.9 Type 2 diabetes mellitus without complications; D50.8 Other iron deficiency anemias; K21.9 Gastro-esophageal reflux disease without esophagitis; G89.29 Other chronic pain; E55.9 Vitamin D deficiency, unspecified; E78.5 Hyperlipidemia, unspecified; M19.90 Unspecified osteoarthritis, unspecified site; E66.9 Obesity, unspecified; E78.00 Pure hypercholesterolemia, unspecified; Z90.49 Acquired absence of other specified parts of digestive tract; Z79.899 Other long term (current) drug therapy; Z88.8 Allergy status to other drugs, medicaments and biological substances; Z87.891 Personal history of nicotine dependence ==

== ENCOUNTER → 2018-06-27 | Outpatient (CLI) | payer MEDICARE ==
[~2018-06-27] MED LIST changes: +BACLOFEN5 MG PO; +ERTAPENEM1 GM IV; +GABAPENTIN800 MG PO
[2018-06-27 10:21] LABS: BASO % 0.4 % (0.0-1.0); EOS % 11.2 % (1.0-4.0); HEMATOCRIT 37.4 % (37.0-47.0); HEMOGLOBIN 11.8 g/dl (12.0-16.0); LYMPH # 2.1 10*3/uL (1.3-4.4); MEAN CORPUSCULAR HGB 29.4 pg (27.0-31.0); MEAN CORPUSCULAR HGB CONC 31.6 g/dl (33.0-37.0); MEAN PLATELET VOLUME 9.9 fl (9.6-12.3); MONO # 0.6 10*3/uL (0.1-1.0); MONO % 6.2 % (3.0-9.0); NEUT # 5.4 10*3/uL (2.3-7.9); NEUT % 58.9 % (47.0-73.0); PLATELET COUNT AUTOMATED 283 10*3/uL (130-400); RED BLOOD COUNT 4.02 10*6/uL (4.10-5.10); RED CELL DISTRI WIDTH 13.2 % (0-14.5); WHITE BLOOD COUNT 9.2 10*3/uL (4.8-10.8)
[2018-06-27 10:46] LABS: ALBUMIN 3.2 gm/dl (3.1-4.5); BUN 9 mg/dl (7-24); CHLORIDE 106 mmol/L (98-107); CHOLESTEROL 165 mg/dL (<200); CREATININE 1.02 mg/dL (0.55-1.02); IRON 70 ug/dL (50-170); POTASSIUM 4.8 mmol/L (3.5-5.1); SGOT/AST 11 IU/L (3-35); SGPT/ALT 14 U/L (12-78); SODIUM 142 mmol/L (136-145); TOTAL IRON BINDING CAPACITY 317 ug/dl (250-450); TOTAL PROTEIN 7.2 gm/dL (6.4-8.2); TRIGLYCERIDES 167 mg/dl (<150); VLDL CHOLESTEROL 33 mg/dL (6-40)
[2018-06-27 10:53] LABS: ALKALINE PHOSPHATASE 105 U/L (45-117); HDL CHOLESTEROL 49 mg/dl (40-60); LDL CHOLESTEROL 83 mg/dL (9-159)
[2018-06-27 12:35] LABS: VITAMIN D, 25-HYDROXY 43.7 ng/mL (30-100)
== END | disposition home or self-care (01) ==
LOC: LAB 09:57
PROVIDERS: Student in an Organized Health Care Education/Training Program
DX: D50.9 Iron deficiency anemia, unspecified (principal); E55.9 Vitamin D deficiency, unspecified; Z79.899 Other long term (current) drug therapy

== ENCOUNTER → 2018-07-13 | Outpatient (CLI) | payer MEDICARE | END | disposition home or self-care (01) | LOC: RESCLI 01:08 | DX: I48.2 Chronic atrial fibrillation (principal); I10 Essential (primary) hypertension; E11.9 Type 2 diabetes mellitus without complications; E78.5 Hyperlipidemia, unspecified; K21.9 Gastro-esophageal reflux disease without esophagitis; G47.00 Insomnia, unspecified; K59.03 Drug induced constipation; G89.29 Other chronic pain; D50.8 Other iron deficiency anemias; E55.9 Vitamin D deficiency, unspecified; Z87.891 Personal history of nicotine dependence; Z88.8 Allergy status to other drugs, medicaments and biological substances; Z79.899 Other long term (current) drug therapy ==

== ENCOUNTER 2018-08-27 11:33 | Inpatient (IN) | payer MEDICARE ==
[~2018-08-27] VITALS: Ht 162.5 cm; Wt 107.5 kg
--- NOTE | ~2018-08-27 | EKG ---
[place], [place] ELECTROCARDIOGRAM REPORT NAME: NATHANIEL GRANGER UNIT #: [id number] ROOM: 506 DOCTOR: ALAN DRAFT REPORT BIRTHDATE: [birth year] [facility] Test Date: 2018-08-27 Test Time: 14:47:24 Pat Name: NATHANIEL GRANGER Department: Room: 506 Gender: F Real Estate Sales Manager: Jami Albert : 1955 Requested By: AV ZHONG Order Number: [id number] Reading MD: Jim Herrera Measurements Intervals [place] Rate: 64 P: 26 PA: 167 QRS: -37 QRSD: 139 T: 23 QT: 456 QTc: 471 Interpretive Statements Sinus rhythm Left bundle branch block Baseline wander in lead(s) II,III,aVF,V1 No previous ECG available for comparison Electronically Signed On 08-29-2018 11:44:59 PDT by Jim Herrera CM:EKGRPT:ELECTROCARDIOGRAM REPORT 1447 1144 AV PHILLIPS DRAFT REPORT AV ZHONG MD
--- NOTE | ~2018-08-27 | EKG ---
[place], [place] ELECTROCARDIOGRAM REPORT NAME: NATHANIEL GRANGER UNIT #: [id number] ROOM: 506 DOCTOR: ALAN DRAFT REPORT BIRTHDATE: [birth year] [facility] Test Date: 2018-08-27 Test Time: 11:33:40 Pat Name: NATHANIEL GRANGER Department: Room: 506 Gender: F Restaurant Kitchen Manager: : 1955 Requested By: AV ZHONG Order Number: [id number] Reading MD: Jim Herrera Measurements Intervals [place] Rate: 70 P: 32 LA: 155 QRS: -35 QRSD: 141 T: 47 QT: 448 QTc: 484 Interpretive Statements Sinus rhythm Left bundle branch block Electronically Signed On 08-29-2018 11:43:28 PDT by Jim Herrera CM:EKGRPT:ELECTROCARDIOGRAM REPORT 1133 1143 AV PHILLIPS DRAFT REPORT AV ZHONG MD
--- NOTE | ~2018-08-27 | EKG ---
[place], [place] ELECTROCARDIOGRAM REPORT NAME: NATHANIEL GRANGER UNIT #: [id number] ROOM: 506 DOCTOR: ALAN DRAFT REPORT BIRTHDATE: [birth year] [facility] Test Date: 2018-08-27 Test Time: 16:52:36 Pat Name: NATHAINEL GRANGER Department: Room: 506 Gender: F Medical Dermatologist: Jami Albert : 1955 Requested By: AV ZHONG Order Number: [id number] Reading MD: Jim Herrera Measurements Intervals [place] Rate: 59 P: 32 CO: 169 QRS: -37 QRSD: 139 T: 23 QT: 476 QTc: 472 Interpretive Statements Sinus rhythm Left bundle branch block No previous ECG available for comparison Electronically Signed On 08-29-2018 11:48:42 PDT by Jim Herrera CM:EKGRPT:ELECTROCARDIOGRAM REPORT 1652 1148 AV PHILLIPS DRAFT REPORT AV ZHONG MD
[~2018-08-27 11:33] MED LIST changes: -BACLOFEN5 MG PO; -BUSPIRONE HCL7.5 MG PO; -ERTAPENEM1 GM IV; -GABAPENTIN800 MG PO; -LOVASTATIN40 MG PO; -OMEPRAZOLE40 MG PO
[2018-08-27 11:35] VITALS: BP 126/48
[2018-08-27 11:53] LABS: BASO # 0.1 10*3/uL (0.0-0.1); BASO % 0.6 % (0.0-1.0); EOS # 0.7 10*3/uL (0.0-0.4); EOS % 7.8 % (1.0-4.0); HEMATOCRIT 37.9 % (37.0-47.0); LYMPH # 1.8 10*3/uL (1.3-4.4); LYMPH % 21.3 % (27.0-41.0); MEAN CELL VOLUME 90.9 fl (81.0-99.0); MEAN CORPUSCULAR HGB 28.8 pg (27.0-31.0); MEAN CORPUSCULAR HGB CONC 31.7 g/dl (33.0-37.0); MEAN PLATELET VOLUME 10.1 fl (9.6-12.3); MONO # 0.6 10*3/uL (0.1-1.0); MONO % 7.1 % (3.0-9.0); NEUT # 5.4 10*3/uL (2.3-7.9); NEUT % 62.9 % (47.0-73.0); PLATELET COUNT AUTOMATED 288 10*3/uL (130-400); RED BLOOD COUNT 4.17 10*6/uL (4.10-5.10); RED CELL DISTRI WIDTH 13.2 % (0-14.5); WHITE BLOOD COUNT 8.6 10*3/uL (4.8-10.8)
[2018-08-27 12:08] LABS: ACT PARTIAL THROMBO TIME 28.5 SECONDS (20.0-32.1); INTERNATIONAL NORM RATIO 0.9 (2.0-3.5)
[2018-08-27 12:09] LABS: ALBUMIN 3.3 gm/dl (3.1-4.5); ALKALINE PHOSPHATASE 101 U/L (45-117); BUN 13 mg/dl (7-24); CHLORIDE 106 mmol/L (98-107); CREATININE 1.02 mg/dL (0.55-1.02); POTASSIUM 5.3 mmol/L (3.5-5.1); SGOT/AST 14 IU/L (3-35); SGPT/ALT 14 U/L (12-78); SODIUM 142 mmol/L (136-145); TOTAL PROTEIN 7.3 gm/dL (6.4-8.2)
[2018-08-27 12:10] LABS: TROPONIN I < 0.015 ng/ml (<0.045)
[2018-08-27 12:35] VITALS: BP 121/41
--- NOTE | 2018-08-27 15:00 | NUR ---
PATIENT TAKEN TO FLOOR BY MARIANELA AT THIS TIME. PATIENT A&OX4. REPORT GIVEN TO JEMIMA NICK ON PHONE.
[2018-08-27 15:11] VITALS: BP 141/48
--- NOTE | 2018-08-27 15:11 | NUR ---
A 62, admitted to , under the services of DANNI Suazo DO with a diagnosis of CHEST PAIN. Chief complaint is MIDSTERNAL CHEST PAIN. Patient arrived via stretcher from ER. Monitor applied. Initial assessment completed. Vital signs taken and recorded. DANNI SUAZO DO notified of admission to the unit. Orders received. See assessment for past medical history, medications and allergies. Patient and/or family oriented to unit. [facility] visitation policy reviewed. Clothing/patient valuable form completed. JEMIMA JOHNS
[2018-08-27] MEDS ORDERED: LOVASTATIN40 MG PO (15:29)
[2018-08-27] MEDS ORDERED: OMEPRAZOLE40 MG PO (15:30)
--- NOTE | 2018-08-27 15:31 | NUR ---
MEDICATION LIST UPDATED WITH PATIENT REVIEW.
--- NOTE | 2018-08-27 15:46 | NUR ---
DR. ALCOCER MADE AWARE THAT HOME MEDICATION LIST UPDATED, VARIFIED THAT PATIENT SHOULD BE ON TELEMETRY, ORDER WILL BE CHANGED PER DR. ALCOCER
[2018-08-27 20:00] VITALS: BP 117/51
--- NOTE | 2018-08-27 20:09 | NUR ---
1939 RESTING IN BED WATCHING TV. ALERT AND PLEASANT. HEP LOCK INTACT. NO DISTRESS NOTED. NO C/O'S CHEST PAIN VOICED AT PRESENT TIME.
--- NOTE | 2018-08-27 22:07 | NUR ---
2669 ROUTINE MS CONTIN GIVEN ORDERED.
[2018-08-28] VITALS: BP 120/46
--- NOTE | 2018-08-28 01:19 | NUR ---
RESTING IN BED WITH EYES CLOSED. APPEARS TO BE SLEEPING.
--- NOTE | 2018-08-28 06:03 | NUR ---
SLEPT WELL THIS SHIFT. REMAINS WITHOUT C/O'S CHEST PAIN. CONDITION GUARDED.
[2018-08-28 07:03] LABS: BASO % 0.2 % (0.0-1.0); EOS # 0.8 10*3/uL (0.0-0.4); EOS % 8.6 % (1.0-4.0); HEMATOCRIT 36.5 % (37.0-47.0); HEMOGLOBIN 11.4 g/dl (12.0-16.0); LYMPH # 2.7 10*3/uL (1.3-4.4); LYMPH % 29.2 % (27.0-41.0); MEAN CELL VOLUME 91.9 fl (81.0-99.0); MEAN CORPUSCULAR HGB 28.7 pg (27.0-31.0); MEAN CORPUSCULAR HGB CONC 31.2 g/dl (33.0-37.0); MEAN PLATELET VOLUME 10.6 fl (9.6-12.3); MONO # 0.7 10*3/uL (0.1-1.0); MONO % 7.3 % (3.0-9.0); NEUT % 54.5 % (47.0-73.0); PLATELET COUNT AUTOMATED 282 10*3/uL (130-400); RED BLOOD COUNT 3.97 10*6/uL (4.10-5.10); RED CELL DISTRI WIDTH 13.2 % (0-14.5); WHITE BLOOD COUNT 9.1 10*3/uL (4.8-10.8)
[2018-08-28 07:32] LABS: BUN 12 mg/dl (7-24); CHLORIDE 106 mmol/L (98-107); CREATININE 0.87 mg/dL (0.55-1.02); SODIUM 142 mmol/L (136-145)
[2018-08-28 07:38] LABS: POTASSIUM 4.2 mmol/L (3.5-5.1)
--- NOTE | 2018-08-28 07:51 | NUR ---
Shift chart check completed.
[2018-08-28 08:00] VITALS: BP 124/60
[2018-08-28] MEDS ORDERED: BUSPIRONE HCL7.5 MG PO (09:09)
--- NOTE | 2018-08-28 10:20 | NUR ---
Discharge instructions reviewed with patient/family. Patient receptive and verbalizes understanding. Follow-up care understood. Written instructions given to patient/family. iv removed, tele removed. pt has no questions on discharge instructions, understands to merchandise pickup/receiving associate new rx at pharmacy tomorrow. JEMIMA JOHNS
--- NOTE | 2018-08-28 10:31 | NUR ---
DISCHARGE VIA WHEELCHAIR, SISTER WITH PATIENT
== END 2018-08-28 10:31 | disposition home or self-care (01) | DRG 880 ==
LOC: ED 11:33 → EDHOLD 12:50 → 5E 13:56
PROVIDERS: Emergency Medicine; Family Medicine; ADMIT Family Medicine
DX: F41.9 Anxiety disorder, unspecified (principal); E78.5 Hyperlipidemia, unspecified; K21.9 Gastro-esophageal reflux disease without esophagitis; I10 Essential (primary) hypertension; I48.91 Unspecified atrial fibrillation; E11.65 Type 2 diabetes mellitus with hyperglycemia; Z90.49 Acquired absence of other specified parts of digestive tract; Z86.711 Personal history of pulmonary embolism; Z82.49 Family history of ischemic heart disease and other diseases of the circulatory system; Z79.1 Long term (current) use of non-steroidal anti-inflammatories (NSAID); Z79.899 Other long term (current) drug therapy; Z79.84 Long term (current) use of oral hypoglycemic drugs

== ENCOUNTER → 2018-09-13 | Outpatient (CLI) | payer MEDICARE ==
[~2018-09-13] MED LIST changes: +BUSPIRONE HCL7.5 MG PO; +LOVASTATIN40 MG PO; +OMEPRAZOLE40 MG PO
--- NOTE | ~2018-09-13 | ST ---
[place], [place] EXERCISE STRESS TEST REPORT NAME: NATHANIEL GRANGER UNIT #: [id number] ROOM: DOCTOR: ZEB ARRIETA MD BIRTHDATE: [birth year] DOS: 09/13/2018 LEXISCAN PORTION OF THE LEXISCAN CARDIOLITE Baseline cardiogram, sinus with left bundle branch block, 0.4 mg of Lexiscan, duration of 10 seconds. With Lexiscan, no new EKG changes. The patient did not have any chest discomfort. Blood pressure and heart rate responses normal. Nuclear images will be reported separately. ZEB ARRIETA MD CM:STRESS:EXERCISE STRESS TEST REPORT 0709 0830 ZEB ARRIETA MD
--- NOTE | 2018-09-13 07:13 | NUR ---
INFORMED SIGNED CONSENT OBTAINED FOR LEXISCAN STRESS TEST WITH DR ARRIETA. RESTING EKG LBBB HR 68 BP 114/60, PULSE OX 94% LUNGS CLEAR. PT COMLETED ONE MINUTE OF A LEXISCAN PROTOCOL WITH PT RECEIVING LEXISCAN 0.4 MG IV OVER 10 SECONDS. NO ARRHYTHMIAS NOTED. NON DIAGNOSTIC ST CHANGES. PT C/O CHEST DISCOMFORT, NAUSEA AND SOB WITH INJECTION. LAST RECOVERY HR OF 74 BP 120/58. PT IN STABLE CONDITION, AWAITING NUCLEAR IMAGES.
== END | disposition home or self-care (01) ==
LOC: CARD 02:09
DX: R07.9 Chest pain, unspecified (principal); R53.81 Other malaise

== ENCOUNTER → 2018-10-05 | Outpatient (CLI) | payer MEDICARE ==
[~2018-10-05] MED LIST changes: +BACLOFEN5 MG PO; +ERTAPENEM1 GM IV; +GABAPENTIN800 MG PO
== END | disposition home or self-care (01) ==
LOC: RESCLI 01:06
DX: I48.2 Chronic atrial fibrillation (principal); G89.29 Other chronic pain; D50.8 Other iron deficiency anemias; E55.9 Vitamin D deficiency, unspecified; E11.9 Type 2 diabetes mellitus without complications; I10 Essential (primary) hypertension; G47.00 Insomnia, unspecified; K59.03 Drug induced constipation; K21.9 Gastro-esophageal reflux disease without esophagitis; E53.8 Deficiency of other specified B group vitamins; R60.0 Localized edema; H61.22 Impacted cerumen, left ear; E66.9 Obesity, unspecified; Z68.39 Body mass index [BMI] 39.0-39.9, adult; Z79.899 Other long term (current) drug therapy

== ENCOUNTER 2018-10-08 20:54 | Emergency (ER) | payer MEDICARE ==
[~2018-10-08] VITALS: Ht 162.5 cm; Wt 102.1 kg
[~2018-10-08 20:54] MED LIST changes: -BACLOFEN5 MG PO; -ERTAPENEM1 GM IV; -GABAPENTIN800 MG PO
[2018-10-08 22:44] LABS: BILIRUBIN NEGATIVE (NEGATIVE); BLOOD TRACE-INTACT (NEGATIVE); CLARITY SL CLOUDY (CLEAR); COLOR YELLOW (YELLOW); GLUCOSE NEGATIVE (NEGATIVE); KETONE NEGATIVE (NEGATIVE); LEUKO ESTERASE 3+ (NEGATIVE); NITRITE NEGATIVE (NEGATIVE); UROBILINOGEN 0.2 E.U./dl (0.2-1.0)
[2018-10-08 22:53] LABS: BACTERIA TRACE; WBC TNTC wbc/hpf (0-5)
[2018-10-08] MEDS ORDERED: MACROBID100 M1 PO (23:06)
== END 2018-10-08 23:53 | disposition home or self-care (01) ==
LOC: ED 20:54
PROVIDERS: Nurse Practitioner Family
DX: N39.0 Urinary tract infection, site not specified (principal); E11.9 Type 2 diabetes mellitus without complications; Z79.899 Other long term (current) drug therapy; Z90.49 Acquired absence of other specified parts of digestive tract

== ENCOUNTER 2018-10-11 17:33 | Inpatient (IN) | payer MEDICARE ==
[~2018-10-11] VITALS: Ht 162.5 cm; Wt 101.7 kg
--- NOTE | ~2018-10-11 | EKG ---
[place], [place] ELECTROCARDIOGRAM REPORT NAME: NATHANIEL GRANGER UNIT #: [id number] ROOM: 409 DOCTOR: ALAN DRAFT REPORT BIRTHDATE: [birth year] [facility] Test Date: 2018-10-11 Test Time: 20:21:44 Pat Name: NATHANIEL GRANGER Department: Room: 409 Gender: F Accelerator Technician: Aracely Craig : 1955 Requested By: NERY GAMINO Order Number: [id number] Reading MD: Miranda Chirinos MD Measurements Intervals [place] Rate: 79 P: 49 MN: 176 QRS: -34 QRSD: 144 T: 109 QT: 411 QTc: 472 Interpretive Statements Sinus rhythm Left bundle branch block Compared to ECG 08/27/2018 16:52:36 No significant changes Electronically Signed On 10-13-2018 8:09:30 PDT by Miranda Chirinos MD CM:EKGRPT:ELECTROCARDIOGRAM REPORT 20 0809 NERY PHILLIPS DRAFT REPORT NERY GAMINO M.D.
--- NOTE | ~2018-10-11 | EKG ---
[place], [place] ELECTROCARDIOGRAM REPORT NAME: NATHANIEL GRANGER UNIT #: [id number] ROOM: 409 DOCTOR: ALAN DRAFT REPORT BIRTHDATE: [birth year] [facility] Test Date: 2018-10-11 Test Time: 23:37:27 Pat Name: NATHANIEL GRANGER Department: Room: 409 Gender: F Ethnology Teacher: Migdalia Isaac : 1955 Requested By: NERY GAMINO Order Number: [id number] Reading MD: Miranda Chirinos MD Measurements Intervals [place] Rate: 84 P: 50 WI: 189 QRS: -36 QRSD: 156 T: 124 QT: 414 QTc: 490 Interpretive Statements Sinus rhythm Probable left atrial enlargement Left bundle branch block Baseline wander in lead(s) V2 Compared to ECG 08/27/2018 16:52:36 No significant changes Electronically Signed On 10-13-2018 8:10:08 PDT by Miranda Chirinos MD CM:EKGRPT:ELECTROCARDIOGRAM REPORT [id number] 0810 NERY PHILLIPS DRAFT REPORT NERY GAMINO M.D.
--- NOTE | ~2018-10-11 | EKG ---
[place], [place] ELECTROCARDIOGRAM REPORT NAME: NATHANIEL GRANGER UNIT #: [id number] ROOM: 409 DOCTOR: ALAN DRAFT REPORT BIRTHDATE: [birth year] [facility] Test Date: 2018-10-11 Test Time: 17:37:13 Pat Name: NATHANIEL GRANGER Department: Room: 409 Gender: F Mat Making Machine Tender: Aracely Craig : 1955 Requested By: NERY GAMINO Order Number: [id number] Reading MD: Miranda Chirinos MD Measurements Intervals [place] Rate: 84 P: 42 NV: 173 QRS: -36 QRSD: 146 T: 117 QT: 401 QTc: 475 Interpretive Statements Sinus rhythm Probable left atrial enlargement Left bundle branch block Compared to ECG 08/27/2018 16:52:36 No significant changes Electronically Signed On 10-13-2018 8:09:18 PDT by Miranda Chirinos MD CM:EKGRPT:ELECTROCARDIOGRAM REPORT 1737 0809 NERY PHILLIPS DRAFT REPORT NERY GAMINO M.D.
[2018-10-11 17:34] VITALS: BP 98/40
[2018-10-11 17:39] VITALS: BP 113/40
[2018-10-11 18:02] LABS: BASO % 0.3 % (0.0-1.0); EOS # 0.7 10*3/uL (0.0-0.4); EOS % 8.9 % (1.0-4.0); HEMATOCRIT 33.8 % (37.0-47.0); HEMOGLOBIN 11.1 g/dl (12.0-16.0); LYMPH # 0.7 10*3/uL (1.3-4.4); LYMPH % 8.3 % (27.0-41.0); MEAN CORPUSCULAR HGB 28.9 pg (27.0-31.0); MEAN CORPUSCULAR HGB CONC 32.8 g/dl (33.0-37.0); MEAN PLATELET VOLUME 10.4 fl (9.6-12.3); MONO # 0.5 10*3/uL (0.1-1.0); MONO % 5.9 % (3.0-9.0); NEUT % 76.2 % (47.0-73.0); PLATELET COUNT AUTOMATED 277 10*3/uL (130-400); RED BLOOD COUNT 3.84 10*6/uL (4.10-5.10); RED CELL DISTRI WIDTH 13.7 % (0-14.5); WHITE BLOOD COUNT 7.9 10*3/uL (4.8-10.8)
[2018-10-11 18:14] LABS: ACT PARTIAL THROMBO TIME 35.3 SECONDS (20.0-32.1)
[2018-10-11 18:15] LABS: ALBUMIN 2.9 gm/dl (3.1-4.5); ALKALINE PHOSPHATASE 202 U/L (45-117); BUN 30 mg/dl (7-24); CHLORIDE 101 mmol/L (98-107); CREATININE 1.82 mg/dL (0.55-1.02); POTASSIUM 3.7 mmol/L (3.5-5.1); SGOT/AST 58 IU/L (3-35); SGPT/ALT 43 U/L (12-78); SODIUM 135 mmol/L (136-145)
[2018-10-11 18:18] LABS: TROPONIN I < 0.015 ng/ml (<0.045)
[2018-10-11 18:45] LABS: BILIRUBIN NEGATIVE (NEGATIVE); BLOOD NEGATIVE (NEGATIVE); CLARITY SL CLOUDY (CLEAR); COLOR YELLOW (YELLOW); GLUCOSE NEGATIVE (NEGATIVE); KETONE NEGATIVE (NEGATIVE); LEUKO ESTERASE 1+ (NEGATIVE); NITRITE NEGATIVE (NEGATIVE); PH 5.5 (5.0-9.0); UROBILINOGEN 0.2 E.U./dl (0.2-1.0)
[2018-10-11 18:54] LABS: BACTERIA 1+
[2018-10-11 20:40] VITALS: BP 128/57
--- NOTE | 2018-10-11 20:40 | NUR ---
A 63, admitted to 4E, under the services of FELIX Madera DO with a diagnosis of ENMANUEL, UTI. Chief complaint is DIZZINESS. Patient arrived via bed from ER. Monitor applied. Initial assessment completed. Vital signs taken and recorded. FELIX MADERA DO notified of admission to the unit. Orders received. See assessment for past medical history, medications and allergies. Patient and/or family oriented to unit. [facility] visitation policy reviewed. Clothing/patient valuable form completed. ZEINA FORTE
[2018-10-11] MEDS ORDERED: GABAPENTIN800 MG PO (21:00)
[2018-10-11] MEDS ORDERED: BACLOFEN5 MG PO (21:01)
--- NOTE | 2018-10-11 21:14 | NUR ---
DR. CARRIZALES NOTIFIED OF COMPLETE MEDICATIONS. LASIX AND POTASSIUM TO BE CLARIFIED WITH PHARMACY IN THE AM.
--- NOTE | 2018-10-11 22:37 | NUR ---
DR. CARRIZALES NOTIFIED OF NEED FOR WOUND CARE ORDERS.
[2018-10-12] VITALS: BP 111/76
--- NOTE | 2018-10-12 04:57 | NUR ---
24 HR chart check completed.
--- NOTE | 2018-10-12 04:58 | NUR ---
PATIENT RESTING WITH EYES CLOSED. RESPIRATIONS WASY AND UNLABORED. CALL LIGHT WITHIN REACH. WILL MONITOR FOR EFFECTIVENESS.
[2018-10-12 06:37] LABS: BASO % 0.2 % (0.0-1.0); EOS # 0.7 10*3/uL (0.0-0.4); EOS % 11.2 % (1.0-4.0); HEMATOCRIT 32.7 % (37.0-47.0); HEMOGLOBIN 10.4 g/dl (12.0-16.0); LYMPH # 0.9 10*3/uL (1.3-4.4); LYMPH % 15.5 % (27.0-41.0); MEAN CELL VOLUME 89.3 fl (81.0-99.0); MEAN CORPUSCULAR HGB 28.4 pg (27.0-31.0); MEAN CORPUSCULAR HGB CONC 31.8 g/dl (33.0-37.0); MEAN PLATELET VOLUME 10.6 fl (9.6-12.3); MONO # 0.5 10*3/uL (0.1-1.0); NEUT # 3.8 10*3/uL (2.3-7.9); NEUT % 63.8 % (47.0-73.0); PLATELET COUNT AUTOMATED 245 10*3/uL (130-400); RED BLOOD COUNT 3.66 10*6/uL (4.10-5.10); RED CELL DISTRI WIDTH 13.7 % (0-14.5); WHITE BLOOD COUNT 5.9 10*3/uL (4.8-10.8)
[2018-10-12 06:56] LABS: ALBUMIN 2.7 gm/dl (3.1-4.5); CREATININE 1.23 mg/dL (0.55-1.02); POTASSIUM 3.5 mmol/L (3.5-5.1)
[2018-10-12 06:59] LABS: PHOSPHOROUS 3.2 mg/dL (2.5-4.9); TOTAL PROTEIN 6.9 gm/dL (6.4-8.2)
[2018-10-12 08:00] VITALS: BP 102/40
--- NOTE | 2018-10-12 09:00 | NUR ---
Online Marketing Analyst in to talk to patient. Patient states lives at home with brother. There are few steps in the home. Physician: [facility] Pharmacy: [facility] Home health services: none Patient's level of ADLs: INDEPENDENT Patient has working utilities: all working DME: cane and walker Follow-up physician's appointment after d/c: will be made by hospitalist nurse director upon discharge Does patient want to access PORTAL?: no Discharge plan discussed with patient, she states she lives at home with her brother, is independent in adls and ambulation, drives, discussed with patient falling at home, and a possibly short term nursing home stay for rehab prior to returing home, patient stated yesterday was the only time she has fallen and she fell due to being very weak, she states she feels better today and will be returning home when medically stable, also discussed with her vna and she declined any home services also, case management will follow. ALYSSA ALONSO
[2018-10-12 11:29] VITALS: BP 105/44
--- NOTE | 2018-10-12 11:30 | NUR ---
NOTIFIED OF LOW BP. OK TO GIVE METOPROLOL.
[2018-10-12 12:00] VITALS: BP 105/44
--- NOTE | 2018-10-12 14:04 | NUR ---
Discharge instructions reviewed with patient/family. Patient receptive and verbalizes understanding. Follow-up care arranged. Written instructions given to patient/family. MARIE CORONADO
--- NOTE | 2018-10-12 14:40 | NUR ---
NATHANIEL GRANGER Makenna [id number] Please refer to the physician's history and physical for past medical history, comorbid conditions, and allergies. Diagnosis: ACUTE KIDNEY INJURY UTI Ford Score: 20,LOW OR NO RISK WOUND DESCRIPTIONS: Wound Number: 1 Location of the wound: left elbow Type of wound: skin tear Thickness: Partial Size: 1.5cm x 1.0cm x 0.1cm Tunneling: none Undermining: none Sinus Tract: none Presence of Exudate: Serosanguineous Amount: Light Color: Red Odor: None Periwound Skin Appearance: Normal Wound edges: approximated Pain (associated with wound): none at time of assessment How does patient state this happened? pt stated this happened when he fell Surface the patient is resting on: Position Pro SKIN PREVENTION RECOMMENDATION: 1. Pressure redistribution support surface as appropriate 2. Elevate heels 3. Remove boots/TEDS every shift and reapply 4. Head of bed 30 degrees as tolerated 5. Assess nutrition and hydration 6. Manage moisture 7. Avoid the use of containment devices while in bed 8. Use absorptive products on surfaces limit layers of linens on bed 9. Turn and reposition every 1-2 hours in bed and every 1 hour in chair as tolerated 10. Weight shifts every 15 minutes while up in chair 11. Offloading with pillows or device to keep heels elevated off bed 12. Monitor skin at least every shift 13. Inspect under medical devices twice a day WOUND TREATMENT RECOMMENDATIONS: Clarify skin tear guidelines: Cleanse left elbow with nss and apply sureprep around the wound hydrogel to wound bed and cover with optifoam gentle daily and prn for soiling.
[2018-10-12 16:00] VITALS: BP 106/52
--- NOTE | 2018-10-12 16:09 | NUR ---
Dr. Gurrola notified of wound care recommendations.
[2018-10-12 20:00] VITALS: BP 125/51
[2018-10-13] VITALS: BP 102/45
[2018-10-13 06:40] LABS: BUN 14 mg/dl (7-24); CHLORIDE 106 mmol/L (98-107); CREATININE 0.85 mg/dL (0.55-1.02)
[2018-10-13 06:59] LABS: SODIUM 141 mmol/L (136-145)
--- NOTE | 2018-10-13 07:00 | NUR ---
BED SIDE REPORT RECEIVED FROM DIRECTOR OF STUDENT LIFE NURSE. PT ALERT AND ORIENTED. VOICES NO COMPLAINTS AT THIS TIME. PT STATES "I FEEL SO MUCH BETTER" PT CALL LIGHT IN REACH.
[2018-10-13 07:04] LABS: POTASSIUM 4.5 mmol/L (3.5-5.1)
[2018-10-13 08:00] VITALS: BP 104/42
[2018-10-13] MEDS ORDERED: ERTAPENEM1 GM IV (08:23)
--- NOTE | 2018-10-13 08:28 | NUR ---
case management spoke to Dr León regarding patient's iv antibiotics, she will need 8 days of iv ertapenem at home, patient's information faxed to [facility] to check patient's cost of medication at home, if medication is too expensive will discuss other options with patient
--- NOTE | 2018-10-13 10:00 | NUR ---
case management visits with patient, discussed with her home iv antibotics and checking the patient's cost to administer them at home, also discussed with her coming into the hospital as an outpatient daily for 8 days to have them administer. patient is agreeable to either options but stated she was unable to pay a lot for medications, will await [employer] to return call with patient's cost for antibiotics
--- NOTE | 2018-10-13 11:05 | NUR ---
Recommend follow up for wound care in outpatient setting patient refused at this time.
--- NOTE | 2018-10-13 11:20 | NUR ---
case management received a call from Gretchen at [employer]. patient will have a $600 copay for her home iv antibiotics, case management will make arrangements for patient to return to the hospital as an outpatient when medically stable for discharge
[2018-10-13 12:00] VITALS: BP 113/48
--- NOTE | 2018-10-13 12:05 | NUR ---
CALLED DR. PEREZ ABOUT NEED FOR MIDLINE. STATED HE COULD DO THAT.
--- NOTE | 2018-10-13 12:20 | NUR ---
Nutritional Support Services Note: Pt is eating 100% of all meals. 1800cal diabetic diet as ordered. Skin tear noted to elbow from fall at home. Night snack provided. Pt declined a supplement at this time. Encouraged follow up if needed. No other nutrition intervention needed at this time. Irais Arshad Rdn Ld
--- NOTE | 2018-10-13 13:59 | NUR ---
case management contacted central scheduling regarding setting up an appointment for patient starting tomorrow for 8 days, spoke to Dilma, patient is scheduled at 9am for 8 days, contacted pharmacy and informed them patient will be coming in to the hospital starting tomorrow for iv antibiotic, script faxed to pharmacy, educated patient to be in the hospital at 9am in the morning and every day for 8 days, patient verbalized understanding
--- NOTE | 2018-10-13 14:45 | NUR ---
Discharge instructions reviewed with patient/family. Patient receptive and verbalizes understanding. Follow-up care arranged. Written instructions given to patient/family. ZEINA FORTE
== END 2018-10-13 14:45 | disposition home or self-care (01) | DRG 689 ==
LOC: ED 17:33 → EDHOLD 19:29 → 4E 19:29
PROVIDERS: Emergency Medicine; Internal Medicine; Nurse Practitioner Family; Student in an Organized Health Care Education/Training Program; ADMIT Internal Medicine
DX: N39.0 Urinary tract infection, site not specified (principal); N17.0 Acute kidney failure with tubular necrosis; E44.0 Moderate protein-calorie malnutrition; M51.26 Other intervertebral disc displacement, lumbar region; R74.0 Nonspecific elevation of levels of transaminase and lactic acid dehydrogenase [LDH]; R42 Dizziness and giddiness; E11.69 Type 2 diabetes mellitus with other specified complication; E66.9 Obesity, unspecified; K21.9 Gastro-esophageal reflux disease without esophagitis; D64.9 Anemia, unspecified; E11.42 Type 2 diabetes mellitus with diabetic polyneuropathy; F32.9 Major depressive disorder, single episode, unspecified; I10 Essential (primary) hypertension; I48.2 Chronic atrial fibrillation; G25.81 Restless legs syndrome; M51.16 Intervertebral disc disorders with radiculopathy, lumbar region; F41.9 Anxiety disorder, unspecified; S51.012A Laceration without foreign body of left elbow, initial encounter; X58.XXXA Exposure to other specified factors, initial encounter; Y93.89 Activity, other specified; Y92.89 Other specified places as the place of occurrence of the external cause; Y99.8 Other external cause status; Z86.711 Personal history of pulmonary embolism; Z90.49 Acquired absence of other specified parts of digestive tract; Z82.49 Family history of ischemic heart disease and other diseases of the circulatory system; Z83.3 Family history of diabetes mellitus; Z80.0 Family history of malignant neoplasm of digestive organs; Z79.899 Other long term (current) drug therapy; Z79.01 Long term (current) use of anticoagulants; Z68.38 Body mass index [BMI] 38.0-38.9, adult

== ENCOUNTER → 2018-11-04 | Outpatient (CLI) | payer MEDICARE ==
[~2018-11-04] MED LIST changes: +BACLOFEN5 MG PO; +ERTAPENEM1 GM IV; +GABAPENTIN800 MG PO
[2018-11-04 11:24] LABS: BILIRUBIN NEGATIVE (NEGATIVE); BLOOD NEGATIVE (NEGATIVE); CLARITY CLEAR (CLEAR); COLOR YELLOW (YELLOW); GLUCOSE NEGATIVE (NEGATIVE); KETONE NEGATIVE (NEGATIVE); LEUKO ESTERASE NEGATIVE (NEGATIVE); NITRITE NEGATIVE (NEGATIVE); PH 5.5 (5.0-9.0); SPECIFIC GRAVITY 1.015 (1.005-1.030); UROBILINOGEN 0.2 E.U./dl (0.2-1.0)
[2018-11-04 12:14] LABS: RBC 0-2 rbc/hpf (0-2); WBC 0-2 wbc/hpf (0-5)
== END | disposition home or self-care (01) ==
LOC: RESCLI 00:38
PROVIDERS: Internal Medicine
DX: Z13.9 Encounter for screening, unspecified (principal); E11.9 Type 2 diabetes mellitus without complications; G89.29 Other chronic pain; E55.9 Vitamin D deficiency, unspecified; D50.8 Other iron deficiency anemias; I10 Essential (primary) hypertension; E78.5 Hyperlipidemia, unspecified; I48.2 Chronic atrial fibrillation; R60.0 Localized edema; E53.8 Deficiency of other specified B group vitamins; K21.9 Gastro-esophageal reflux disease without esophagitis; K59.03 Drug induced constipation; G47.00 Insomnia, unspecified; H61.22 Impacted cerumen, left ear; N39.0 Urinary tract infection, site not specified; Z79.899 Other long term (current) drug therapy; Z87.891 Personal history of nicotine dependence

== ENCOUNTER → 2018-11-23 | Outpatient (CLI) | payer MEDICARE | END | disposition home or self-care (01) | LOC: US 14:30 | DX: N39.0 Urinary tract infection, site not specified (principal) ==

== ENCOUNTER → 2018-12-07 | Outpatient (CLI) | payer MEDICARE | END | disposition home or self-care (01) | LOC: RESCLI 01:22 | DX: Z23 Encounter for immunization (principal); E78.5 Hyperlipidemia, unspecified; I10 Essential (primary) hypertension; E55.9 Vitamin D deficiency, unspecified; D50.8 Other iron deficiency anemias; G89.29 Other chronic pain; R60.0 Localized edema; I48.20 Chronic atrial fibrillation, unspecified; E53.8 Deficiency of other specified B group vitamins; K21.9 Gastro-esophageal reflux disease without esophagitis; K59.03 Drug induced constipation; G47.00 Insomnia, unspecified; H61.22 Impacted cerumen, left ear; E11.9 Type 2 diabetes mellitus without complications; F32.9 Major depressive disorder, single episode, unspecified; Z79.899 Other long term (current) drug therapy; Z79.01 Long term (current) use of anticoagulants; Z79.84 Long term (current) use of oral hypoglycemic drugs ==

== ENCOUNTER → 2019-01-10 | Outpatient (CLI) | payer MEDICARE ==
[2019-01-10 13:24] LABS: BUN 10 mg/dl (7-24); CHLORIDE 106 mmol/L (98-107); CREATININE 0.85 mg/dL (0.55-1.02); SODIUM 142 mmol/L (136-145)
[2019-01-10 13:45] LABS: FREE T4 1.04 ng/dl (0.76-1.46)
== END | disposition home or self-care (01) ==
LOC: LAB 11:58
PROVIDERS: Internal Medicine
DX: E11.9 Type 2 diabetes mellitus without complications (principal)

== ENCOUNTER → 2019-02-14 | Outpatient (CLI) | payer MEDICARE | END | disposition home or self-care (01) | LOC: RESCLI 02:26 | DX: Z23 Encounter for immunization (principal); I11.0 Hypertensive heart disease with heart failure; I50.32 Chronic diastolic (congestive) heart failure; D50.8 Other iron deficiency anemias; E55.9 Vitamin D deficiency, unspecified; G89.29 Other chronic pain; I48.20 Chronic atrial fibrillation, unspecified; E53.8 Deficiency of other specified B group vitamins; K21.9 Gastro-esophageal reflux disease without esophagitis; K59.03 Drug induced constipation; G47.00 Insomnia, unspecified; F32.9 Major depressive disorder, single episode, unspecified; H61.22 Impacted cerumen, left ear; E78.5 Hyperlipidemia, unspecified; R60.0 Localized edema; Z79.899 Other long term (current) drug therapy; Z90.89 Acquired absence of other organs; Z87.891 Personal history of nicotine dependence; Z79.01 Long term (current) use of anticoagulants ==

== ENCOUNTER → 2019-02-28 | Outpatient (CLI) | payer MEDICARE | END | disposition home or self-care (01) | LOC: MAMMO 02-27 14:00 | DX: Z12.31 Encounter for screening mammogram for malignant neoplasm of breast (principal) ==

== ENCOUNTER 2019-04-01 03:38 | Emergency (ER) | payer MEDICARE ==
[~2019-04-01] VITALS: Ht 162.5 cm; Wt 99.8 kg
[2019-04-01] MEDS ORDERED: Orphenadrine C100 MG PO (05:15)
== END 2019-04-01 05:24 | disposition home or self-care (01) ==
LOC: ED 03:38
DX: G25.81 Restless legs syndrome (principal); G89.29 Other chronic pain; E11.40 Type 2 diabetes mellitus with diabetic neuropathy, unspecified; I10 Essential (primary) hypertension; K21.9 Gastro-esophageal reflux disease without esophagitis; I48.91 Unspecified atrial fibrillation; E78.00 Pure hypercholesterolemia, unspecified; Z79.899 Other long term (current) drug therapy; Z90.49 Acquired absence of other specified parts of digestive tract

== ENCOUNTER → 2019-08-29 | Outpatient (CLI) | payer MEDICARE | END | disposition home or self-care (01) | LOC: RESCLI 02:47 | DX: D50.8 Other iron deficiency anemias (principal); G89.29 Other chronic pain; E53.8 Deficiency of other specified B group vitamins; K21.9 Gastro-esophageal reflux disease without esophagitis; K59.03 Drug induced constipation; G47.00 Insomnia, unspecified; E55.9 Vitamin D deficiency, unspecified; I48.20 Chronic atrial fibrillation, unspecified; I10 Essential (primary) hypertension; R60.0 Localized edema; E78.5 Hyperlipidemia, unspecified; E11.9 Type 2 diabetes mellitus without complications; B37.0 Candidal stomatitis; Z79.899 Other long term (current) drug therapy; Z98.890 Other specified postprocedural states; Z95.828 Presence of other vascular implants and grafts ==

== ENCOUNTER → 2019-10-03 | Outpatient (CLI) | payer MEDICARE ==
[2019-10-03 11:21] LABS: BASO % 0.2 % (0.0-1.0); EOS # 0.6 10*3/uL (0.0-0.4); EOS % 6.8 % (1.0-4.0); HEMATOCRIT 38.5 % (37.0-47.0); LYMPH # 1.3 10*3/uL (1.3-4.4); LYMPH % 15.1 % (27.0-41.0); MEAN CELL VOLUME 92.1 fl (81.0-99.0); MEAN CORPUSCULAR HGB 28.9 pg (27.0-31.0); MEAN CORPUSCULAR HGB CONC 31.4 g/dl (33.0-37.0); MEAN PLATELET VOLUME 10.3 fl (9.6-12.3); MONO # 0.5 10*3/uL (0.1-1.0); MONO % 5.8 % (3.0-9.0); NEUT # 6.1 10*3/uL (2.3-7.9); NEUT % 71.9 % (47.0-73.0); PLATELET COUNT AUTOMATED 250 10*3/uL (130-400); RED BLOOD COUNT 4.18 10*6/uL (4.10-5.10); RED CELL DISTRI WIDTH 12.8 % (0-14.5); WHITE BLOOD COUNT 8.5 10*3/uL (4.8-10.8)
[2019-10-03 11:38] LABS: ALBUMIN 3.3 gm/dl (3.1-4.5); BUN 15 mg/dl (7-24); CHLORIDE 105 mmol/L (98-107); CHOLESTEROL 188 mg/dL (<200); CREATININE 1.05 mg/dL (0.55-1.02); POTASSIUM 4.7 mmol/L (3.5-5.1); SGOT/AST 16 IU/L (3-35); SGPT/ALT 20 U/L (12-78); SODIUM 140 mmol/L (136-145); TRIGLYCERIDES 186 mg/dl (<150); VLDL CHOLESTEROL 37 mg/dL (6-40)
[2019-10-03 11:48] LABS: ALKALINE PHOSPHATASE 87 U/L (45-117); HDL CHOLESTEROL 50 mg/dl (40-60); LDL CHOLESTEROL 101 mg/dL (9-159); TOTAL PROTEIN 7.4 gm/dL (6.4-8.2)
[2019-10-04 10:07] LABS: MICRO ALBUMIN/CRE RATIO <4 (0-29)
== END | disposition home or self-care (01) ==
LOC: LAB 10:33
PROVIDERS: Internal Medicine
DX: E11.9 Type 2 diabetes mellitus without complications (principal)

== ENCOUNTER → 2019-11-10 | Outpatient (CLI) | payer MEDICARE | END | disposition home or self-care (01) | LOC: RESCLI 02:45 | PROVIDERS: ATTEND Internal Medicine | DX: D50.8 Other iron deficiency anemias (principal); G89.29 Other chronic pain; E53.8 Deficiency of other specified B group vitamins; K21.9 Gastro-esophageal reflux disease without esophagitis; K59.03 Drug induced constipation; G47.00 Insomnia, unspecified; E55.9 Vitamin D deficiency, unspecified; I48.21 Permanent atrial fibrillation; R60.0 Localized edema; I10 Essential (primary) hypertension; E11.9 Type 2 diabetes mellitus without complications; Z23 Encounter for immunization; Z79.899 Other long term (current) drug therapy; Z98.890 Other specified postprocedural states; Z87.891 Personal history of nicotine dependence ==

== ENCOUNTER → 2020-04-24 | Outpatient (CLI) | payer MEDICARE ==
[2020-04-24 11:23] LABS: BASO % 0.3 % (0.0-1.0); EOS # 0.5 10*3/uL (0.0-0.4); HEMATOCRIT 39.5 % (37.0-47.0); LYMPH # 1.6 10*3/uL (1.3-4.4); LYMPH % 13.5 % (27.0-41.0); MEAN CELL VOLUME 93.4 fl (81.0-99.0); MEAN CORPUSCULAR HGB CONC 32.2 g/dl (33.0-37.0); MEAN PLATELET VOLUME 10.5 fl (9.6-12.3); MONO # 0.8 10*3/uL (0.1-1.0); MONO % 6.4 % (3.0-9.0); NEUT # 9.1 10*3/uL (2.3-7.9); NEUT % 75.5 % (47.0-73.0); PLATELET COUNT AUTOMATED 273 10*3/uL (130-400); RED BLOOD COUNT 4.23 10*6/uL (4.10-5.10); RED CELL DISTRI WIDTH 13.2 % (0-14.5); WHITE BLOOD COUNT 12.1 10*3/uL (4.8-10.8)
[2020-04-24 11:57] LABS: CREATININE 1.16 mg/dL (0.55-1.02); POTASSIUM 5.1 mmol/L (3.5-5.1)
== END | disposition home or self-care (01) ==
LOC: LAB 10:59
PROVIDERS: Internal Medicine; ATTEND Internal Medicine
DX: E11.9 Type 2 diabetes mellitus without complications (principal); D50.8 Other iron deficiency anemias; E55.9 Vitamin D deficiency, unspecified

== ENCOUNTER → 2020-05-01 | Outpatient (CLI) | payer MEDICARE | END | disposition home or self-care (01) | LOC: RESCLI 01:57 | PROVIDERS: ATTEND Internal Medicine Nephrology | DX: I48.0 Paroxysmal atrial fibrillation (principal); I10 Essential (primary) hypertension; E78.5 Hyperlipidemia, unspecified; R60.0 Localized edema; E11.9 Type 2 diabetes mellitus without complications; E55.9 Vitamin D deficiency, unspecified; K21.9 Gastro-esophageal reflux disease without esophagitis; G47.00 Insomnia, unspecified; K59.03 Drug induced constipation; E53.8 Deficiency of other specified B group vitamins; D50.8 Other iron deficiency anemias; G89.29 Other chronic pain; Z79.84 Long term (current) use of oral hypoglycemic drugs; Z79.899 Other long term (current) drug therapy; Z87.891 Personal history of nicotine dependence ==

== ENCOUNTER → 2020-05-22 | Outpatient (CLI) | payer MEDICARE ==
[2020-05-22 11:34] LABS: BILIRUBIN Negative (Negative); BLOOD 1+ (Negative); CLARITY Turbid (Clear); COLOR Yellow (Yellow); GLUCOSE Negative (Negative); KETONE Negative (Negative); LEUKO ESTERASE 3+ (Negative); NITRITE Positive (Negative); UROBILINOGEN 0.2 E.U./dl (0.0-1.0)
[2020-05-22 11:44] LABS: BACTERIA 2+; WBC TNTC wbc/hpf (0-5)
[2020-05-24 15:07] LABS: NEURONTIN (GABAPENTIN) 19.9 ug/mL (4.0-16.0)
[2020-05-25 10:07] LABS: TOTAL (AMI + NOR) 223 ng/mL (80-200)
== END | disposition home or self-care (01) ==
LOC: LAB 09:43 → MRI 11:00
PROVIDERS: Internal Medicine; ATTEND Psychiatry & Neurology Neurology
DX: M50.221 Other cervical disc displacement at C4-C5 level (principal); M25.78 Osteophyte, vertebrae; R42 Dizziness and giddiness; G89.29 Other chronic pain; G56.20 Lesion of ulnar nerve, unspecified upper limb; R39.9 Unspecified symptoms and signs involving the genitourinary system; I10 Essential (primary) hypertension; E11.9 Type 2 diabetes mellitus without complications

== ENCOUNTER → 2020-07-10 | Outpatient (CLI) | payer MEDICARE | END | disposition home or self-care (01) | LOC: RESCLI 02:22 | PROVIDERS: ATTEND Internal Medicine Nephrology | DX: I48.20 Chronic atrial fibrillation, unspecified (principal); R60.0 Localized edema; E78.5 Hyperlipidemia, unspecified; I10 Essential (primary) hypertension; E11.9 Type 2 diabetes mellitus without complications; K21.9 Gastro-esophageal reflux disease without esophagitis; E55.9 Vitamin D deficiency, unspecified; G47.00 Insomnia, unspecified; K59.03 Drug induced constipation; E53.8 Deficiency of other specified B group vitamins; D50.8 Other iron deficiency anemias; G89.29 Other chronic pain; N39.0 Urinary tract infection, site not specified; Z79.899 Other long term (current) drug therapy; Z79.82 Long term (current) use of aspirin; Z79.84 Long term (current) use of oral hypoglycemic drugs; Z95.828 Presence of other vascular implants and grafts; Z98.890 Other specified postprocedural states; Z87.891 Personal history of nicotine dependence ==

== ENCOUNTER → 2020-07-10 | Outpatient (CLI) | payer MEDICARE ==
[2020-07-10 16:10] LABS: CREATININE 1.14 mg/dL (0.55-1.02); POTASSIUM 5.1 mmol/L (3.5-5.1)
== END | disposition home or self-care (01) ==
LOC: LAB 15:14
PROVIDERS: ATTEND Internal Medicine
DX: Z79.899 Other long term (current) drug therapy (principal)

== ENCOUNTER → 2020-07-18 | Outpatient (CLI) | payer MEDICARE | END | disposition home or self-care (01) | LOC: ORTHO 00:17 | PROVIDERS: ATTEND Orthopaedic Surgery | DX: M17.0 Bilateral primary osteoarthritis of knee (principal); M25.761 Osteophyte, right knee; M25.762 Osteophyte, left knee; M25.461 Effusion, right knee; M25.862 Other specified joint disorders, left knee; M25.861 Other specified joint disorders, right knee ==

== ENCOUNTER → 2020-08-27 | Outpatient (CLI) | payer MEDICARE ==
[~2020-08-27] MED LIST changes: +GLUCOPHAGE500 M1 PO; +IRON325 M1 PO; -METFORMIN500 MG PO; +PAROXETINE HCL10 MG PO; +PERCOCET 10-321 EACH PO; -Percocet 325 MG1 TAB PO; +VICTOZA 2-0.6 MG/0.1 SQ; +VITAMIN D350 MC2 PO
== END | disposition home or self-care (01) ==
LOC: CARD 08-26 07:32
PROVIDERS: ATTEND Internal Medicine Cardiovascular Disease
DX: R07.9 Chest pain, unspecified (principal)

== ENCOUNTER → 2020-09-05 | Outpatient (CLI) | payer MEDICARE | END | disposition home or self-care (01) | LOC: RESCLI 00:56 | PROVIDERS: ATTEND Internal Medicine | DX: K21.9 Gastro-esophageal reflux disease without esophagitis (principal); Z12.31 Encounter for screening mammogram for malignant neoplasm of breast; Z13.820 Encounter for screening for osteoporosis; E55.9 Vitamin D deficiency, unspecified; G47.00 Insomnia, unspecified; E53.8 Deficiency of other specified B group vitamins; I48.20 Chronic atrial fibrillation, unspecified; E78.5 Hyperlipidemia, unspecified; R60.0 Localized edema; E11.9 Type 2 diabetes mellitus without complications; F41.9 Anxiety disorder, unspecified; I11.0 Hypertensive heart disease with heart failure; I50.32 Chronic diastolic (congestive) heart failure; D50.8 Other iron deficiency anemias; G89.29 Other chronic pain; Z98.890 Other specified postprocedural states; Z87.891 Personal history of nicotine dependence; Z79.84 Long term (current) use of oral hypoglycemic drugs; Z79.899 Other long term (current) drug therapy ==

== ENCOUNTER → 2020-10-29 | Outpatient (CLI) | payer MEDICARE | END | disposition home or self-care (01) | LOC: COVID19 15:25 | PROVIDERS: ATTEND Family Medicine | DX: Z11.52 Encounter for screening for COVID-19 (principal) ==

== ENCOUNTER → 2020-11-20 | Outpatient (CLI) | payer MEDICARE | END | disposition home or self-care (01) | LOC: RESCLI 09:19 | PROVIDERS: ATTEND Family Medicine | DX: L29.0 Pruritus ani (principal); I48.20 Chronic atrial fibrillation, unspecified; E55.9 Vitamin D deficiency, unspecified; R60.0 Localized edema; K21.9 Gastro-esophageal reflux disease without esophagitis; E11.9 Type 2 diabetes mellitus without complications; E78.5 Hyperlipidemia, unspecified; I11.0 Hypertensive heart disease with heart failure; F41.9 Anxiety disorder, unspecified; G89.29 Other chronic pain; D50.8 Other iron deficiency anemias; E53.8 Deficiency of other specified B group vitamins; E66.9 Obesity, unspecified; K59.03 Drug induced constipation; I26.99 Other pulmonary embolism without acute cor pulmonale; Z87.891 Personal history of nicotine dependence; Z98.890 Other specified postprocedural states; Z79.84 Long term (current) use of oral hypoglycemic drugs; Z79.899 Other long term (current) drug therapy ==

== ENCOUNTER → 2020-12-11 | Outpatient (CLI) | payer MEDICARE | END | disposition home or self-care (01) | LOC: RESCLI 01:44 | PROVIDERS: ATTEND Internal Medicine | DX: F41.9 Anxiety disorder, unspecified (principal); I48.20 Chronic atrial fibrillation, unspecified; R60.0 Localized edema; I10 Essential (primary) hypertension; E11.9 Type 2 diabetes mellitus without complications; E78.5 Hyperlipidemia, unspecified; G89.29 Other chronic pain; K21.9 Gastro-esophageal reflux disease without esophagitis; E55.9 Vitamin D deficiency, unspecified; E53.8 Deficiency of other specified B group vitamins; D53.8 Other specified nutritional anemias; D50.8 Other iron deficiency anemias; I26.99 Other pulmonary embolism without acute cor pulmonale; M19.90 Unspecified osteoarthritis, unspecified site; Z79.84 Long term (current) use of oral hypoglycemic drugs; Z79.899 Other long term (current) drug therapy; Z68.39 Body mass index [BMI] 39.0-39.9, adult ==

== ENCOUNTER → 2020-12-13 | Outpatient (CLI) | payer MEDICARE ==
[2020-12-13 09:45] LABS: BASO % 0.4 % (0.0-1.0); EOS # 0.8 10*3/uL (0.0-0.4); EOS % 7.6 % (1.0-4.0); HEMATOCRIT 39.1 % (37.0-47.0); LYMPH % 18.5 % (27.0-41.0); MEAN CELL VOLUME 94.7 fl (81.0-99.0); MEAN CORPUSCULAR HGB 29.5 pg (27.0-31.0); MEAN CORPUSCULAR HGB CONC 31.2 g/dl (33.0-37.0); MEAN PLATELET VOLUME 10.2 fl (9.6-12.3); MONO # 0.8 10*3/uL (0.1-1.0); MONO % 7.9 % (3.0-9.0); NEUT # 6.9 10*3/uL (2.3-7.9); NEUT % 65.1 % (47.0-73.0); PLATELET COUNT AUTOMATED 326 10*3/uL (130-400); RED BLOOD COUNT 4.13 10*6/uL (4.10-5.10); RED CELL DISTRI WIDTH 13.1 % (0-14.5); WHITE BLOOD COUNT 10.6 10*3/uL (4.8-10.8)
[2020-12-13 10:07] LABS: ALKALINE PHOSPHATASE 93 U/L (45-117); BUN 10 mg/dl (7-24); CHLORIDE 106 mmol/L (98-107); CHOLESTEROL 172 mg/dL (<200); CREATININE 0.92 mg/dL (0.55-1.02); LDL CHOLESTEROL 82 mg/dL (9-159); POTASSIUM 4.7 mmol/L (3.5-5.1); SGOT/AST 15 IU/L (3-35); SODIUM 140 mmol/L (136-145); TOTAL PROTEIN 6.8 gm/dL (6.4-8.2); TRIGLYCERIDES 189 mg/dl (<150)
[2020-12-13 10:16] LABS: SGPT/ALT 20 U/L (12-78)
[2020-12-14 10:07] LABS: CREATININE,URINE 42.1 mg/dL (Not Estab.); MICRO ALBUMIN/CRE RATIO <7 (0-29)
== END | disposition home or self-care (01) ==
LOC: LAB 09:10
PROVIDERS: Internal Medicine; ATTEND Internal Medicine
DX: I10 Essential (primary) hypertension (principal); E11.9 Type 2 diabetes mellitus without complications; E78.5 Hyperlipidemia, unspecified

== ENCOUNTER → 2021-01-14 | Outpatient (CLI) | payer MEDICARE ==
[2021-01-14 12:30] LABS: BASO % 0.4 % (0.0-1.0); EOS # 0.1 10*3/uL (0.0-0.4); EOS % 1.2 % (1.0-4.0); HEMATOCRIT 39.2 % (37.0-47.0); LYMPH # 2.1 10*3/uL (1.3-4.4); LYMPH % 19.5 % (27.0-41.0); MEAN CELL VOLUME 92.2 fl (81.0-99.0); MEAN CORPUSCULAR HGB 29.6 pg (27.0-31.0); MEAN CORPUSCULAR HGB CONC 32.1 g/dl (33.0-37.0); MEAN PLATELET VOLUME 10.2 fl (9.6-12.3); MONO # 0.7 10*3/uL (0.1-1.0); MONO % 6.6 % (3.0-9.0); NEUT # 7.6 10*3/uL (2.3-7.9); NEUT % 71.7 % (47.0-73.0); PLATELET COUNT AUTOMATED 338 10*3/uL (130-400); RED BLOOD COUNT 4.25 10*6/uL (4.10-5.10); WHITE BLOOD COUNT 10.6 10*3/uL (4.8-10.8)
[2021-01-14 13:00] LABS: ALBUMIN 3.3 gm/dl (3.1-4.5); ALKALINE PHOSPHATASE 103 U/L (45-117); BUN 19 mg/dl (7-24); CHLORIDE 104 mmol/L (98-107); CHOLESTEROL 183 mg/dL (<200); CREATININE 0.92 mg/dL (0.55-1.02); LDL CHOLESTEROL 87 mg/dL (9-159); POTASSIUM 4.7 mmol/L (3.5-5.1); SGOT/AST 6 IU/L (3-35); SGPT/ALT 18 U/L (12-78); SODIUM 138 mmol/L (136-145); TOTAL PROTEIN 7.7 gm/dL (6.4-8.2); TRIGLYCERIDES 177 mg/dl (<150)
[2021-01-15 12:07] LABS: CREATININE,URINE 74.5 mg/dL (Not Estab.)
== END | disposition home or self-care (01) ==
LOC: LAB 12:00
PROVIDERS: Internal Medicine; ATTEND Internal Medicine
DX: I10 Essential (primary) hypertension (principal); E11.9 Type 2 diabetes mellitus without complications; E78.5 Hyperlipidemia, unspecified

== ENCOUNTER 2021-04-17 18:29 | Emergency (ER) | payer MEDICARE ==
[~2021-04-17] VITALS: Ht 162.5 cm; Wt 104.3 kg
[2021-04-17 19:09] LABS: BILIRUBIN Negative (Negative); BLOOD 1+ (Negative); CLARITY Turbid (Clear); COLOR Yellow (Yellow); GLUCOSE Negative (Negative); KETONE Negative (Negative); LEUKO ESTERASE 3+ (Negative); NITRITE Positive (Negative); SPECIFIC GRAVITY 1.015 (1.001-1.030); UROBILINOGEN 0.2 E.U./dl (0.0-1.0)
[2021-04-17 19:32] LABS: WBC TNTC wbc/hpf (0-5)
[2021-04-17] MEDS ORDERED: CEFUROXIME AXE500 MG PO (19:37)
== END 2021-04-17 19:42 | disposition home or self-care (01) ==
LOC: ED 18:29
PROVIDERS: Physician Assistant
DX: N39.0 Urinary tract infection, site not specified (principal); Z79.899 Other long term (current) drug therapy; Z90.49 Acquired absence of other specified parts of digestive tract; Z98.890 Other specified postprocedural states; Z90.89 Acquired absence of other organs

== ENCOUNTER → 2021-07-02 | Outpatient (CLI) | payer MEDICARE ==
[~2021-07-02] MED LIST changes: +CEFUROXIME AXE500 MG PO
[2021-07-02 10:45] LABS: BASO % 0.4 % (0.0-1.0); EOS # 0.8 10*3/uL (0.0-0.4); EOS % 7.2 % (1.0-4.0); HEMATOCRIT 40.7 % (37.0-47.0); LYMPH # 2.3 10*3/uL (1.3-4.4); LYMPH % 21.7 % (27.0-41.0); MEAN CELL VOLUME 90.8 fl (81.0-99.0); MEAN CORPUSCULAR HGB 29.5 pg (27.0-31.0); MEAN CORPUSCULAR HGB CONC 32.4 g/dl (33.0-37.0); MEAN PLATELET VOLUME 10.1 fl (9.6-12.3); MONO # 0.8 10*3/uL (0.1-1.0); NEUT # 6.9 10*3/uL (2.3-7.9); NEUT % 63.4 % (47.0-73.0); PLATELET COUNT AUTOMATED 308 10*3/uL (130-400); RED BLOOD COUNT 4.48 10*6/uL (4.10-5.10); RED CELL DISTRI WIDTH 12.6 % (0-14.5); WHITE BLOOD COUNT 10.8 10*3/uL (4.8-10.8)
[2021-07-02 11:02] LABS: BUN 21 mg/dl (7-24); CHLORIDE 103 mmol/L (98-107); CREATININE 0.93 mg/dL (0.55-1.02); POTASSIUM 4.8 mmol/L (3.5-5.1); SODIUM 138 mmol/L (136-145)
== END | disposition home or self-care (01) ==
LOC: RESCLI 01:54
PROVIDERS: Internal Medicine; ATTEND Internal Medicine
DX: I10 Essential (primary) hypertension (principal); E11.9 Type 2 diabetes mellitus without complications; Z12.39 Encounter for other screening for malignant neoplasm of breast; G89.29 Other chronic pain; K21.9 Gastro-esophageal reflux disease without esophagitis; E55.9 Vitamin D deficiency, unspecified; E53.8 Deficiency of other specified B group vitamins; D50.8 Other iron deficiency anemias; I26.99 Other pulmonary embolism without acute cor pulmonale; F41.9 Anxiety disorder, unspecified; E78.5 Hyperlipidemia, unspecified; I48.91 Unspecified atrial fibrillation; Z79.899 Other long term (current) drug therapy

== ENCOUNTER → 2021-07-17 | Outpatient (CLI) | payer MEDICARE | END | disposition home or self-care (01) | LOC: RAD 01:29 → MAMMO 14:30 | PROVIDERS: ATTEND Internal Medicine | DX: Z12.31 Encounter for screening mammogram for malignant neoplasm of breast (principal); N64.89 Other specified disorders of breast; Z78.0 Asymptomatic menopausal state ==

== ENCOUNTER 2021-09-22 19:42 | Emergency (ER) | payer MEDICARE ==
[2021-09-22 20:45] LABS: BILIRUBIN Negative (Negative); BLOOD Negative (Negative); CLARITY Clear (Clear); COLOR Yellow (Yellow); GLUCOSE Negative (Negative); KETONE Negative (Negative); LEUKO ESTERASE 3+ (Negative); NITRITE Negative (Negative); PH 5.5 (4.5-8.0); SPECIFIC GRAVITY <= 1.005 (1.001-1.030); UROBILINOGEN 0.2 E.U./dl (0.0-1.0)
[2021-09-22 20:54] LABS: BACTERIA 2+; HYALINE CAST 0-2; WBC 41-50 wbc/hpf (0-5)
[2021-09-22 22:07] LABS: BASO % 0.4 % (0.0-1.0); EOS # 0.7 10*3/uL (0.0-0.4); EOS % 6.3 % (1.0-4.0); HEMATOCRIT 37.6 % (37.0-47.0); LYMPH # 2.3 10*3/uL (1.3-4.4); LYMPH % 20.7 % (27.0-41.0); MEAN CELL VOLUME 89.7 fl (81.0-99.0); MEAN CORPUSCULAR HGB 30.1 pg (27.0-31.0); MEAN CORPUSCULAR HGB CONC 33.5 g/dl (33.0-37.0); MEAN PLATELET VOLUME 10.5 fl (9.6-12.3); MONO # 0.6 10*3/uL (0.1-1.0); MONO % 5.8 % (3.0-9.0); NEUT # 7.4 10*3/uL (2.3-7.9); NEUT % 66.4 % (47.0-73.0); PLATELET COUNT AUTOMATED 261 10*3/uL (130-400); RED BLOOD COUNT 4.19 10*6/uL (4.10-5.10); RED CELL DISTRI WIDTH 12.9 % (0-14.5); WHITE BLOOD COUNT 11.1 10*3/uL (4.8-10.8)
[2021-09-22 22:24] LABS: ALKALINE PHOSPHATASE 78 U/L (45-117); BUN 15 mg/dl (7-24); CHLORIDE 106 mmol/L (98-107); CREATININE 0.86 mg/dL (0.55-1.02); POTASSIUM 3.6 mmol/L (3.5-5.1); SGOT/AST 15 IU/L (3-35); SGPT/ALT 15 U/L (12-78); SODIUM 139 mmol/L (136-145); TOTAL PROTEIN 6.9 gm/dL (6.4-8.2)
[2021-09-22] MEDS ORDERED: CEPHALEXIN500 M1 PO (23:27)
[2021-09-23] MEDS ORDERED: CEFDINIR300 MG PO (15:09)
== END 2021-09-22 23:33 | disposition home or self-care (01) ==
LOC: ED 19:42
PROVIDERS: Emergency Medicine
DX: N39.0 Urinary tract infection, site not specified (principal); I48.91 Unspecified atrial fibrillation; K21.9 Gastro-esophageal reflux disease without esophagitis; E11.9 Type 2 diabetes mellitus without complications; I10 Essential (primary) hypertension; Z79.899 Other long term (current) drug therapy; Z90.89 Acquired absence of other organs; Z98.890 Other specified postprocedural states; Z90.49 Acquired absence of other specified parts of digestive tract

== ENCOUNTER 2021-09-23 12:41 | Emergency (ER) | payer MEDICARE ==
[~2021-09-23] VITALS: Ht 162.5 cm; Wt 99.8 kg
[2021-09-23 13:08] LABS: BASO % 0.1 % (0.0-1.0); EOS # 0.4 10*3/uL (0.0-0.4); HEMATOCRIT 40.4 % (37.0-47.0); LYMPH # 1.8 10*3/uL (1.3-4.4); LYMPH % 16.7 % (27.0-41.0); MEAN CORPUSCULAR HGB 30.1 pg (27.0-31.0); MEAN CORPUSCULAR HGB CONC 32.7 g/dl (33.0-37.0); MEAN PLATELET VOLUME 10.4 fl (9.6-12.3); MONO # 0.4 10*3/uL (0.1-1.0); MONO % 3.2 % (3.0-9.0); NEUT # 8.2 10*3/uL (2.3-7.9); NEUT % 75.7 % (47.0-73.0); PLATELET COUNT AUTOMATED 258 10*3/uL (130-400); RED BLOOD COUNT 4.39 10*6/uL (4.10-5.10); RED CELL DISTRI WIDTH 13.1 % (0-14.5); WHITE BLOOD COUNT 10.9 10*3/uL (4.8-10.8)
[2021-09-23 13:20] LABS: ACT PARTIAL THROMBO TIME 27.4 SECONDS (20.0-32.1)
[2021-09-23 13:26] LABS: ALKALINE PHOSPHATASE 75 U/L (45-117); BUN 15 mg/dl (7-24); CHLORIDE 105 mmol/L (98-107); CREATININE 1.08 mg/dL (0.55-1.02); POTASSIUM 3.8 mmol/L (3.5-5.1); SGOT/AST 13 IU/L (3-35); SGPT/ALT 16 U/L (12-78); SODIUM 141 mmol/L (136-145); TOTAL PROTEIN 6.7 gm/dL (6.4-8.2)
[2021-09-23] MEDS ORDERED: CEFDINIR300 MG PO (15:09)
== END 2021-09-23 15:15 | disposition home or self-care (01) ==
LOC: ED 12:41
PROVIDERS: Emergency Medicine
DX: R42 Dizziness and giddiness (principal); T36.8X5A Adverse effect of other systemic antibiotics, initial encounter; R07.89 Other chest pain; R06.02 Shortness of breath; R11.0 Nausea; Z79.2 Long term (current) use of antibiotics; Z79.899 Other long term (current) drug therapy; Z90.49 Acquired absence of other specified parts of digestive tract; Z98.890 Other specified postprocedural states; Z90.89 Acquired absence of other organs; Y92.89 Other specified places as the place of occurrence of the external cause

== ENCOUNTER → 2021-10-15 | Outpatient (CLI) | payer MEDICARE ==
[~2021-10-15] MED LIST changes: +CEFDINIR300 MG PO
[2021-10-15 10:33] LABS: BASO % 0.3 % (0.0-1.0); EOS # 1.2 10*3/uL (0.0-0.4); EOS % 9.5 % (1.0-4.0); HEMATOCRIT 39.9 % (37.0-47.0); LYMPH # 1.4 10*3/uL (1.3-4.4); LYMPH % 11.1 % (27.0-41.0); MEAN CELL VOLUME 93.9 fl (81.0-99.0); MEAN CORPUSCULAR HGB 29.6 pg (27.0-31.0); MEAN CORPUSCULAR HGB CONC 31.6 g/dl (33.0-37.0); MONO % 7.5 % (3.0-9.0); NEUT # 9.2 10*3/uL (2.3-7.9); NEUT % 71.3 % (47.0-73.0); PLATELET COUNT AUTOMATED 290 10*3/uL (130-400); RED BLOOD COUNT 4.25 10*6/uL (4.10-5.10); RED CELL DISTRI WIDTH 13.1 % (0-14.5); WHITE BLOOD COUNT 12.8 10*3/uL (4.8-10.8)
[2021-10-15 10:54] LABS: BILIRUBIN Negative (Negative); BLOOD Negative (Negative); CLARITY Clear (Clear); COLOR Yellow (Yellow); GLUCOSE Negative (Negative); KETONE Negative (Negative); LEUKO ESTERASE Negative (Negative); NITRITE Negative (Negative); PH 7.5 (4.5-8.0); SPECIFIC GRAVITY >= 1.030 (1.001-1.030); UROBILINOGEN 0.2 E.U./dl (0.0-1.0)
[2021-10-15 12:51] LABS: ALKALINE PHOSPHATASE 83 U/L (45-117); BUN 16 mg/dl (7-24); CHLORIDE 103 mmol/L (98-107); CREATININE 0.94 mg/dL (0.55-1.02); POTASSIUM 5.1 mmol/L (3.5-5.1); SGOT/AST 15 IU/L (3-35); SGPT/ALT 18 U/L (12-78); SODIUM 137 mmol/L (136-145); TOTAL PROTEIN 6.9 gm/dL (6.4-8.2)
== END | disposition home or self-care (01) ==
LOC: LAB 09:37 → CT 10:00
PROVIDERS: ATTEND Urology
DX: I10 Essential (primary) hypertension (principal); I70.0 Atherosclerosis of aorta; N39.0 Urinary tract infection, site not specified; R31.9 Hematuria, unspecified

== ENCOUNTER → 2021-10-21 | Outpatient (CLI) | payer MEDICARE | END | disposition home or self-care (01) | LOC: RESCLI 14:51 | PROVIDERS: ATTEND Internal Medicine | DX: H61.20 Impacted cerumen, unspecified ear (principal); J06.9 Acute upper respiratory infection, unspecified; E11.9 Type 2 diabetes mellitus without complications; K21.9 Gastro-esophageal reflux disease without esophagitis; I10 Essential (primary) hypertension; F32.A Depression, unspecified; E78.5 Hyperlipidemia, unspecified; M81.0 Age-related osteoporosis without current pathological fracture; E66.9 Obesity, unspecified; Z79.899 Other long term (current) drug therapy; Z79.01 Long term (current) use of anticoagulants ==

== ENCOUNTER 2022-01-07 13:18 | Emergency (ER) | payer MEDICARE ==
[~2022-01-07] VITALS: Wt 99.8 kg
[2022-01-07] MEDS ORDERED: VALTREX1000 MG PO (17:52)
== END 2022-01-07 18:02 | disposition home or self-care (01) ==
LOC: ED 13:18
DX: B02.9 Zoster without complications (principal); Z79.899 Other long term (current) drug therapy; Z90.49 Acquired absence of other specified parts of digestive tract; Z90.89 Acquired absence of other organs; Z98.890 Other specified postprocedural states

== ENCOUNTER → 2022-01-22 | Outpatient (CLI) | payer MEDICARE ==
[~2022-01-22] MED LIST changes: +VALTREX1000 MG PO
[2022-01-22 11:34] LABS: BILIRUBIN Negative (Negative); BLOOD Negative (Negative); CLARITY Clear (Clear); COLOR Yellow (Yellow); GLUCOSE Negative (Negative); KETONE Trace (Negative); LEUKO ESTERASE Negative (Negative); NITRITE Negative (Negative); PH 7.5 (4.5-8.0); SPECIFIC GRAVITY 1.025 (1.001-1.030)
[2022-01-22 12:08] LABS: BACTERIA 1+; RBC 0-2 rbc/hpf (0-2)
== END | disposition home or self-care (01) ==
LOC: RESCLI 08:56
PROVIDERS: Internal Medicine; ATTEND Specialist
DX: N39.0 Urinary tract infection, site not specified (principal); I10 Essential (primary) hypertension; E78.5 Hyperlipidemia, unspecified; Z79.899 Other long term (current) drug therapy; Z90.49 Acquired absence of other specified parts of digestive tract; Z88.8 Allergy status to other drugs, medicaments and biological substances; Z82.49 Family history of ischemic heart disease and other diseases of the circulatory system

== ENCOUNTER 2022-02-10 10:17 | Emergency (ER) | payer MEDICARE ==
[~2022-02-10] VITALS: Ht 162.5 cm; Wt 103.4 kg
[2022-02-10 10:50] LABS: BASO % 0.3 % (0.0-1.0); EOS # 0.7 10*3/uL (0.0-0.4); EOS % 9.2 % (1.0-4.0); HEMATOCRIT 39.5 % (37.0-47.0); LYMPH # 1.6 10*3/uL (1.3-4.4); LYMPH % 21.5 % (27.0-41.0); MEAN CELL VOLUME 92.9 fl (81.0-99.0); MEAN CORPUSCULAR HGB 30.6 pg (27.0-31.0); MEAN CORPUSCULAR HGB CONC 32.9 g/dl (33.0-37.0); MEAN PLATELET VOLUME 9.8 fl (9.6-12.3); MONO # 0.5 10*3/uL (0.1-1.0); MONO % 6.8 % (3.0-9.0); NEUT # 4.6 10*3/uL (2.3-7.9); NEUT % 62.1 % (47.0-73.0); PLATELET COUNT AUTOMATED 229 10*3/uL (130-400); RED BLOOD COUNT 4.25 10*6/uL (4.10-5.10); RED CELL DISTRI WIDTH 13.4 % (0-14.5); WHITE BLOOD COUNT 7.4 10*3/uL (4.8-10.8)
[2022-02-10 11:10] LABS: ALKALINE PHOSPHATASE 62 U/L (46-116); BUN 15 mg/dl (9-23); CHLORIDE 103 mmol/L (98-107); POTASSIUM 3.7 mmol/L (3.4-5.1); TOTAL PROTEIN 6.7 gm/dL (6.0-8.0)
[2022-02-10 11:15] LABS: SGPT/ALT < 7 U/L (10-49)
== END 2022-02-10 12:07 | disposition home or self-care (01) ==
LOC: ED 10:17
PROVIDERS: Student in an Organized Health Care Education/Training Program
DX: B02.9 Zoster without complications (principal); Z90.89 Acquired absence of other organs; Z90.49 Acquired absence of other specified parts of digestive tract

== ENCOUNTER → 2022-07-08 | Outpatient (CLI) | payer MEDICARE | END | disposition home or self-care (01) | LOC: LAB 10:15 | PROVIDERS: ATTEND Nurse Practitioner Family | DX: H10.9 Unspecified conjunctivitis (principal); R09.81 Nasal congestion; R05.8 Other specified cough; Z20.822 Contact with and (suspected) exposure to COVID-19 ==

== ENCOUNTER → 2022-07-23 | Outpatient (CLI) | payer MEDICARE | END | disposition home or self-care (01) | LOC: CT 00:29 | PROVIDERS: ATTEND Nurse Practitioner Family | DX: G31.9 Degenerative disease of nervous system, unspecified (principal); E11.9 Type 2 diabetes mellitus without complications; E78.5 Hyperlipidemia, unspecified; I10 Essential (primary) hypertension ==

== ENCOUNTER → 2022-09-23 | Outpatient (CLI) | payer MEDICARE ==
[2022-09-23 12:29] LABS: BASO % 0.4 % (0.0-1.0); EOS # 0.5 10*3/uL (0.0-0.4); EOS % 6.5 % (1.0-4.0); HEMATOCRIT 41.2 % (37.0-47.0); LYMPH # 1.5 10*3/uL (1.3-4.4); LYMPH % 20.6 % (27.0-41.0); MEAN CORPUSCULAR HGB 29.9 pg (27.0-31.0); MEAN CORPUSCULAR HGB CONC 32.5 g/dl (33.0-37.0); MEAN PLATELET VOLUME 9.9 fl (9.6-12.3); MONO # 0.3 10*3/uL (0.1-1.0); MONO % 4.7 % (3.0-9.0); NEUT # 4.9 10*3/uL (2.3-7.9); NEUT % 67.5 % (47.0-73.0); PLATELET COUNT AUTOMATED 271 10*3/uL (130-400); RED BLOOD COUNT 4.48 10*6/uL (4.10-5.10); RED CELL DISTRI WIDTH 13.5 % (0-14.5); WHITE BLOOD COUNT 7.2 10*3/uL (4.8-10.8)
[2022-09-23 13:03] LABS: ALKALINE PHOSPHATASE 73 U/L (46-116); BUN 10 mg/dl (9-23); CHLORIDE 102 mmol/L (98-107); CHOLESTEROL 211 mg/dL (<200); LDL CHOLESTEROL 133 mg/dL (9-159); POTASSIUM 4.1 mmol/L (3.4-5.1); SGPT/ALT 9 U/L (10-49); TOTAL PROTEIN 7.2 gm/dL (6.0-8.0); TRIGLYCERIDES 107 mg/dl (<150)
[2022-09-23 13:05] LABS: TOTAL PROTEIN 7.2 gm/dL (6.0-8.0)
[2022-09-28 19:06] LABS: METHYLMALONIC ACID 176 nmol/L (0-378)
== END | disposition home or self-care (01) ==
LOC: LAB 11:49
PROVIDERS: Psychiatry & Neurology Neurology; ATTEND Nurse Practitioner Family
DX: R27.0 Ataxia, unspecified (principal); F41.9 Anxiety disorder, unspecified; R90.89 Other abnormal findings on diagnostic imaging of central nervous system; G89.29 Other chronic pain; I10 Essential (primary) hypertension; E78.00 Pure hypercholesterolemia, unspecified; E55.9 Vitamin D deficiency, unspecified; E11.9 Type 2 diabetes mellitus without complications; Z79.899 Other long term (current) drug therapy

== ENCOUNTER → 2022-10-29 | Outpatient (CLI) | payer MEDICARE | END | disposition home or self-care (01) | LOC: US 11:39 | PROVIDERS: ATTEND Urology | DX: N28.89 Other specified disorders of kidney and ureter (principal) ==

== ENCOUNTER → 2023-01-11 | Outpatient (CLI) | payer MEDICARE | END | disposition home or self-care (01) | LOC: RESCLI 01:47 | PROVIDERS: ATTEND Internal Medicine | DX: E11.9 Type 2 diabetes mellitus without complications (principal); G89.29 Other chronic pain; F41.9 Anxiety disorder, unspecified; I26.99 Other pulmonary embolism without acute cor pulmonale; I10 Essential (primary) hypertension; E78.5 Hyperlipidemia, unspecified; K21.9 Gastro-esophageal reflux disease without esophagitis; Z88.8 Allergy status to other drugs, medicaments and biological substances; Z79.84 Long term (current) use of oral hypoglycemic drugs; Z79.01 Long term (current) use of anticoagulants; Z82.49 Family history of ischemic heart disease and other diseases of the circulatory system; Z98.890 Other specified postprocedural states; Z79.899 Other long term (current) drug therapy ==

== ENCOUNTER → 2023-01-26 | Outpatient (CLI) | payer MEDICARE ==
[2023-01-26 12:21] LABS: VITAMIN D, 25-HYDROXY 57.8 ng/mL (30-100)
== END | disposition home or self-care (01) ==
LOC: LAB 11:23
PROVIDERS: ATTEND Nurse Practitioner Family
DX: E11.9 Type 2 diabetes mellitus without complications (principal); E83.52 Hypercalcemia; E78.5 Hyperlipidemia, unspecified; I10 Essential (primary) hypertension

== ENCOUNTER → 2023-08-18 | Outpatient (CLI) | payer MEDICARE ==
[2023-08-18 10:14] LABS: BASO % 0.2 % (0.0-1.0); EOS # 0.4 10*3/uL (0.0-0.4); EOS % 4.5 % (1.0-4.0); HEMATOCRIT 38.1 % (37.0-47.0); LYMPH # 1.6 10*3/uL (1.3-4.4); LYMPH % 17.5 % (27.0-41.0); MEAN CELL VOLUME 92.3 fl (81.0-99.0); MEAN CORPUSCULAR HGB 29.3 pg (27.0-31.0); MEAN CORPUSCULAR HGB CONC 31.8 g/dl (33.0-37.0); MEAN PLATELET VOLUME 10.6 fl (9.6-12.3); MONO # 0.6 10*3/uL (0.1-1.0); MONO % 6.7 % (3.0-9.0); NEUT # 6.5 10*3/uL (2.3-7.9); NEUT % 70.9 % (47.0-73.0); PLATELET COUNT AUTOMATED 249 10*3/uL (130-400); RED BLOOD COUNT 4.13 10*6/uL (4.10-5.10); RED CELL DISTRI WIDTH 13.2 % (0-14.5); WHITE BLOOD COUNT 9.1 10*3/uL (4.8-10.8)
[2023-08-18 10:53] LABS: ALKALINE PHOSPHATASE 85 U/L (46-116); BUN 8 mg/dl (9-23); CHLORIDE 107 mmol/L (98-107); CHOLESTEROL 165 mg/dL (<200); LDL CHOLESTEROL 84 mg/dL (9-159); POTASSIUM 4.7 mmol/L (3.4-5.1); SGPT/ALT 9 U/L (5-49); TOTAL PROTEIN 6.7 gm/dL (6.0-8.0); TRIGLYCERIDES 99 mg/dl (<150)
== END | disposition home or self-care (01) ==
LOC: LAB 09:38
PROVIDERS: ATTEND Nurse Practitioner Family
DX: I10 Essential (primary) hypertension (principal); E11.9 Type 2 diabetes mellitus without complications; E78.5 Hyperlipidemia, unspecified; F41.9 Anxiety disorder, unspecified

== ENCOUNTER → 2023-08-24 | Outpatient (CLI) | payer MEDICARE | END | disposition home or self-care (01) | LOC: RAD 15:22 | PROVIDERS: ATTEND Nurse Practitioner Family | DX: M17.0 Bilateral primary osteoarthritis of knee (principal); G89.29 Other chronic pain ==

== ENCOUNTER → 2023-09-21 | Outpatient (CLI) | payer MEDICARE ==
[~2023-09-21] MED LIST changes: +IOHEXOL 350 MG/ML 100 ML VIAL IV ONE
[2023-09-21 14:08] LABS: BASO % 0.4 % (0.0-1.0); EOS # 0.4 10*3/uL (0.0-0.4); EOS % 4.2 % (1.0-4.0); HEMATOCRIT 39.4 % (37.0-47.0); LYMPH # 1.6 10*3/uL (1.3-4.4); LYMPH % 19.4 % (27.0-41.0); MEAN CORPUSCULAR HGB 29.8 pg (27.0-31.0); MEAN CORPUSCULAR HGB CONC 32.7 g/dl (33.0-37.0); MEAN PLATELET VOLUME 10.4 fl (9.6-12.3); MONO # 0.5 10*3/uL (0.1-1.0); NEUT # 5.9 10*3/uL (2.3-7.9); NEUT % 69.6 % (47.0-73.0); PLATELET COUNT AUTOMATED 248 10*3/uL (130-400); RED BLOOD COUNT 4.33 10*6/uL (4.10-5.10); RED CELL DISTRI WIDTH 12.9 % (0-14.5); WHITE BLOOD COUNT 8.4 10*3/uL (4.8-10.8)
[2023-09-21 14:12] LABS: BILIRUBIN Negative (Negative); BLOOD Negative (Negative); CLARITY Clear (Clear); COLOR Yellow (Yellow); GLUCOSE Negative (Negative); KETONE Negative (Negative); LEUKO ESTERASE Negative (Negative); NITRITE Negative (Negative); SPECIFIC GRAVITY >= 1.030 (1.001-1.030)
[2023-09-21 14:27] LABS: ALKALINE PHOSPHATASE 86 U/L (46-116); BUN 16 mg/dl (9-23); CHLORIDE 103 mmol/L (98-107); POTASSIUM 5.1 mmol/L (3.4-5.1); SGPT/ALT < 7 U/L (5-49); TOTAL PROTEIN 6.6 gm/dL (6.0-8.0)
== END | disposition home or self-care (01) ==
LOC: LAB 12:40 → CT 13:00
PROVIDERS: ATTEND Urology
DX: N39.0 Urinary tract infection, site not specified (principal); R10.32 Left lower quadrant pain

== ENCOUNTER 2023-11-09 16:45 | Emergency (ER) | payer MEDICARE ==
[~2023-11-09] VITALS: Wt 98.0 kg
[~2023-11-09 16:45] MED LIST changes: -IOHEXOL 350 MG/ML 100 ML VIAL IV ONE
[2023-11-09] MEDS ORDERED: OXYCODONE HCL (IR) 5 MG TAB PO ONE (18:10)
== END 2023-11-09 20:26 | disposition home or self-care (01) ==
LOC: ED 16:45
DX: M25.512 Pain in left shoulder (principal); F41.9 Anxiety disorder, unspecified; I48.91 Unspecified atrial fibrillation; F32.A Depression, unspecified; E11.9 Type 2 diabetes mellitus without complications; I10 Essential (primary) hypertension; K21.9 Gastro-esophageal reflux disease without esophagitis; E11.40 Type 2 diabetes mellitus with diabetic neuropathy, unspecified; D64.9 Anemia, unspecified; Z90.49 Acquired absence of other specified parts of digestive tract; Z95.5 Presence of coronary angioplasty implant and graft; Z90.89 Acquired absence of other organs; Z98.890 Other specified postprocedural states

== ENCOUNTER → 2023-11-25 | Outpatient (CLI) | payer MEDICARE ==
[2023-11-25 11:12] LABS: BASO % 0.3 % (0.0-1.0); EOS # 0.4 10*3/uL (0.0-0.4); HEMATOCRIT 41.2 % (37.0-47.0); LYMPH # 1.3 10*3/uL (1.3-4.4); LYMPH % 13.3 % (27.0-41.0); MEAN CELL VOLUME 91.6 fl (81.0-99.0); MEAN CORPUSCULAR HGB 28.9 pg (27.0-31.0); MEAN CORPUSCULAR HGB CONC 31.6 g/dl (33.0-37.0); MONO # 0.5 10*3/uL (0.1-1.0); MONO % 5.2 % (3.0-9.0); NEUT # 7.8 10*3/uL (2.3-7.9); NEUT % 76.9 % (47.0-73.0); PLATELET COUNT AUTOMATED 280 10*3/uL (130-400); RED CELL DISTRI WIDTH 12.6 % (0-14.5); WHITE BLOOD COUNT 10.1 10*3/uL (4.8-10.8)
[2023-11-25 11:28] LABS: URINE CREATININE RANDOM 30.28 mg/dL
[2023-11-25 11:45] LABS: ALKALINE PHOSPHATASE 93 U/L (46-116); BUN 9 mg/dl (9-23); CHLORIDE 104 mmol/L (98-107); CHOLESTEROL 202 mg/dL (<200); LDL CHOLESTEROL 115 mg/dL (9-159); POTASSIUM 4.4 mmol/L (3.4-5.1); TOTAL PROTEIN 6.9 gm/dL (6.0-8.0); TRIGLYCERIDES 128 mg/dl (<150)
[2023-11-25 11:47] LABS: SGPT/ALT < 7 U/L (5-49)
== END | disposition home or self-care (01) ==
LOC: LAB 10:47
PROVIDERS: ATTEND Nurse Practitioner Family
DX: I10 Essential (primary) hypertension (principal); E11.9 Type 2 diabetes mellitus without complications; E78.5 Hyperlipidemia, unspecified; M25.561 Pain in right knee; M25.562 Pain in left knee; G89.29 Other chronic pain

== ENCOUNTER → 2023-12-13 | Outpatient (CLI) | payer MEDICARE | END | disposition home or self-care (01) | LOC: CARD 08:56 | PROVIDERS: ATTEND Internal Medicine Cardiovascular Disease | DX: Z01.810 Encounter for preprocedural cardiovascular examination (principal); I35.8 Other nonrheumatic aortic valve disorders; Z86.711 Personal history of pulmonary embolism ==

== ENCOUNTER → 2024-04-17 | Outpatient (CLI) | payer MEDICARE | END | disposition home or self-care (01) | LOC: RAD 09:30 → MAMMO 12:39 → RAD 13:30 | PROVIDERS: ATTEND Nurse Practitioner Family | DX: Z12.31 Encounter for screening mammogram for malignant neoplasm of breast (principal); Z13.820 Encounter for screening for osteoporosis; R92.333 Mammographic heterogeneous density, bilateral breasts; Z76.89 Persons encountering health services in other specified circumstances; Z78.0 Asymptomatic menopausal state ==

== ENCOUNTER → 2024-06-29 | Outpatient (CLI) | payer MEDICARE ==
[2024-06-29 16:32] LABS: BASO % 0.4 % (0.0-1.0); EOS # 0.5 10*3/uL (0.0-0.4); EOS % 4.4 % (1.0-4.0); HEMATOCRIT 43.6 % (37.0-47.0); MEAN CELL VOLUME 90.8 fl (81.0-99.0); MEAN CORPUSCULAR HGB 28.8 pg (27.0-31.0); MEAN CORPUSCULAR HGB CONC 31.7 g/dl (33.0-37.0); MEAN PLATELET VOLUME 10.7 fl (9.6-12.3); MONO # 0.6 10*3/uL (0.1-1.0); MONO % 5.6 % (3.0-9.0); NEUT # 7.4 10*3/uL (2.3-7.9); NEUT % 71.3 % (47.0-73.0); PLATELET COUNT AUTOMATED 361 10*3/uL (130-400); RED CELL DISTRI WIDTH 13.4 % (0-14.5); WHITE BLOOD COUNT 10.3 10*3/uL (4.8-10.8)
[2024-06-29 16:46] LABS: ALKALINE PHOSPHATASE 88 U/L (46-116); BUN 14 mg/dl (9-23); CHLORIDE 104 mmol/L (98-107); CHOLESTEROL 196 mg/dL (<200); LDL CHOLESTEROL 112 mg/dL (9-159); POTASSIUM 5.1 mmol/L (3.4-5.1); TOTAL PROTEIN 7.1 gm/dL (6.0-8.0); TRIGLYCERIDES 131 mg/dl (<150)
[2024-06-29 16:48] LABS: SGPT/ALT < 7 U/L (5-49)
== END | disposition home or self-care (01) ==
LOC: LAB 15:42
PROVIDERS: ATTEND Nurse Practitioner Family
DX: I10 Essential (primary) hypertension (principal); E11.9 Type 2 diabetes mellitus without complications; E78.5 Hyperlipidemia, unspecified; I48.20 Chronic atrial fibrillation, unspecified; Z76.89 Persons encountering health services in other specified circumstances

== ENCOUNTER 2024-08-28 20:26 | Emergency (ER) | payer MEDICARE ==
[~2024-08-28] VITALS: Ht 167.6 cm; Wt 90.7 kg
[2024-08-28] MEDS ORDERED: SODIUM CHLORIDE 0.9% 1,000 ML IV ONE (20:40)
[2024-08-28 20:55] LABS: BASO # 0.0 10*3/uL (0.0-0.1); BASO % 0.3 % (0.0-1.0); EOS # 0.2 10*3/uL (0.0-0.4); EOS % 1.2 % (1.0-4.0); MEAN CELL VOLUME 87.4 fl (81.0-99.0); MEAN CORPUSCULAR HGB 28.9 pg (27.0-31.0); MEAN PLATELET VOLUME 9.5 fl (9.6-12.3); MONO # 0.8 10*3/uL (0.1-1.0); MONO % 6.2 % (3.0-9.0); NEUT # 9.8 10*3/uL (2.3-7.9); NEUT % 78.7 % (47.0-73.0); NUCLEATED RED BLOOD CELL 0.0 % (0.0-0.0); NUCLEATED RED BLOOD CELL 0.0 10*3/uL (0.0-0.0); PLATELET COUNT AUTOMATED 348 10*3/uL (130-400); RED CELL DISTRI WIDTH 13.1 % (0-14.5)
[2024-08-28 21:30] LABS: BUN 15 mg/dl (9-23)
[2024-08-28 21:31] LABS: SGPT/ALT < 7 U/L (5-49)
[2024-08-28] MEDS ORDERED: LORazepam 1 MG TAB PO ONE (22:10)
== END 2024-08-28 22:53 | disposition home or self-care (01) ==
LOC: ED 20:26
PROVIDERS: Internal Medicine
DX: F19.939 Other psychoactive substance use, unspecified with withdrawal, unspecified (principal); N17.9 Acute kidney failure, unspecified; D72.89 Other specified disorders of white blood cells; G47.00 Insomnia, unspecified; G89.29 Other chronic pain; R63.0 Anorexia; Z79.2 Long term (current) use of antibiotics; Z79.899 Other long term (current) drug therapy; Z90.49 Acquired absence of other specified parts of digestive tract; Z90.89 Acquired absence of other organs; Z98.890 Other specified postprocedural states

== ENCOUNTER → 2024-09-07 | Outpatient (CLI) | payer MEDICARE ==
[~2024-09-07] MED LIST changes: +ASPIRIN CHEWABL81 MG PO; +DULOXETINE HCL60 MG PO; +MORPHINE SULFAT30 M9 PO
== END | disposition home or self-care (01) ==
LOC: LAB 14:48
PROVIDERS: ATTEND Nurse Practitioner Family
DX: R41.0 Disorientation, unspecified (principal)

== ENCOUNTER → 2024-10-23 | Outpatient (CLI) | payer MEDICARE ==
[~2024-10-23] MED LIST changes: +MASON NATURAL325 MG PO; +MIRTAZAPINE15 M2 PO
[2024-10-23 17:06] LABS: BASO # 0.0 10*3/uL (0.0-0.1); BASO % 0.3 % (0.0-1.0); EOS # 0.8 10*3/uL (0.0-0.4); EOS % 6.7 % (1.0-4.0); MEAN CELL VOLUME 94.0 fl (81.0-99.0); MEAN CORPUSCULAR HGB 29.0 pg (27.0-31.0); MEAN PLATELET VOLUME 11.1 fl (9.6-12.3); MONO # 0.8 10*3/uL (0.1-1.0); MONO % 6.2 % (3.0-9.0); NEUT # 8.1 10*3/uL (2.3-7.9); NEUT % 65.6 % (47.0-73.0); NUCLEATED RED BLOOD CELL 0.0 % (0.0-0.0); NUCLEATED RED BLOOD CELL 0.0 10*3/uL (0.0-0.0); PLATELET COUNT AUTOMATED 375 10*3/uL (130-400); RED CELL DISTRI WIDTH 13.6 % (0-14.5)
[2024-10-23 17:28] LABS: BUN 24.0 mg/dl (9-23); SGPT/ALT 12.0 U/L (5-49)
== END | disposition home or self-care (01) ==
LOC: LAB 10:09
PROVIDERS: ATTEND Nurse Practitioner Family
DX: I10 Essential (primary) hypertension (principal); E78.5 Hyperlipidemia, unspecified; E11.9 Type 2 diabetes mellitus without complications; I48.20 Chronic atrial fibrillation, unspecified; Z00.00 Encounter for general adult medical examination without abnormal findings; Z13.29 Encounter for screening for other suspected endocrine disorder

== ENCOUNTER → 2024-11-20 | Outpatient (CLI) | payer MEDICARE ==
[2024-11-20 17:14] LABS: BILIRUBIN 1+ (Negative); BLOOD Negative (Negative); CLARITY Clear (Clear); COLOR Dark Yellow (Yellow); KETONE Trace (Negative); LEUKO ESTERASE 1+ (Negative); NITRITE Positive (Negative); PH 6.0 (4.5-8.0); SPECIFIC GRAVITY 1.025 (1.001-1.030); UROBILINOGEN 1.0 E.U./dl (0.0-1.0)
[2024-11-20 17:21] LABS: MUCOUS 1+
== END | disposition home or self-care (01) ==
LOC: LAB 11:59
PROVIDERS: ATTEND Nurse Practitioner Family
DX: M54.50 Low back pain, unspecified (principal); R41.0 Disorientation, unspecified; Z79.899 Other long term (current) drug therapy